=== PATIENT | female | born 1960 | race Caucasian/White ===

== ENCOUNTER 2017-11-27 13:46 | Observation (INO) | payer OTHER ==
[2017-11-27 14:43] LABS: #Basophils 0.1 thou/uL (0.0-0.2); #Eosinphils 0.2 thou/uL (0.0-0.7); #Lymphocytes 2.1 thou/uL (1.20-3.40); #Monocytes 0.8 thou/uL (0.11-0.59); #Neutrophils 6.7 thou/uL (1.40-6.50); %Basophils 0.9 % (0.0-1.0); %Eosinophils 1.7 % (0.0-10.0); %Lymphocytes 21.2 % (21.0-51.0); %Monocytes 7.9 % (0.0-10.0); %Neutrophils 68.3 % (42.0-75.0); Hemoglobin 12.6 g/dL (12.0-16.0); Mean Corpuscular HGB CONC 33.1 g/dL (32.0-36.0); Mean Corpuscular Hemoglobin 25.7 pg (27.0-31.0); Mean Corpuscular Volume 77.5 fl (81.0-99.0); Mean Platelet Volume 7.7 fL (7.4-10.4); Platelet Count 279 thou/uL (130-400); RBC Distribution Width 15.8 % (11.5-14.5); Red Blood Cell (RBC) Count 4.91 mill/uL (4.20-5.40); White Blood Cell (WBC) Count 9.8 thou/uL (4.8-10.8)
[2017-11-27 15:01] LABS: Bilirubin Negative (Negative); Blood, Urine Negative (Negative); Clarity CLEAR (Clear); Glucose, Urine (Dipstick) Negative (Negative); Leukocyte Negative (Negative); Nitrite Negative (Negative); Protein, Urine (Dipstick) Negative (Neg-Trace); Specific Gravity, Urine 1.005 (1.002-1.036); Urobilinogen 0.2 mg/dL (0.2-1.0)
[2017-11-27 15:03] LABS: Pregnancy Test - Urine (BHCG) Negative (Negative); Pregu Control Background? CLEAR/WHITE (CLR/WHITE); Pregu Control Bar Appear? YES (CONTROL BAR); Specific Gravity 1.005 (1.002-1.036)
[2017-11-27 15:05] LABS: ALT (SGPT) 10 U/L (8-55); AST (SGOT) 14 U/L (5-34); Albumin 4.3 g/dL (3.5-5.0); Alkaline Phosphatase 198 U/L (40-150); Anion Gap 13 mmol/L (10-20); BUN (Urea Nitrogen) 12 mg/dL (9.8-20.1); Bilirubin, Total 0.4 mg/dL (0.2-1.2); CK (CPK) 110 U/L (29-168); Calc. Creatinine Clearance 0 mL/min (70-130); Calcium 9.6 mg/dL (7.8-10.44); Carbon Dioxide 25 mmol/L (22-29); Chloride 103 mmol/L (98-107); Estimated GFR-MDRD 72; Globulin 2.3 g/dL (2.4-3.5); Glucose 128 mg/dL (70-105); Potassium 3.3 mmol/L (3.5-5.1); Protein, Total 6.6 g/dL (6.0-8.3); Sodium 138 mmol/L (136-145)
[2017-11-27 15:08] LABS: CKMB 3.2 ng/mL (0-6.6); Troponin I Less than 0.010 ng/mL (< 0.028)
--- NOTE | 2017-11-27 15:29 | RAD ---
PORTABLE CHEST 1 VIEW: Date: 11/27/17 Time: 1423 hours HISTORY: Chest pain. FINDINGS: Comparison made with exam of 08/10/11. The heart size is normal. The aorta is tortuous. The lungs are expanded without focal areas of consol idation, pneumothoraces, or pleural effusions. IMPRESSION: No acute process. POS: [facility]
[2017-11-27] MEDS ORDERED: Nitroglycerin 2% Ointment 1 INCH/1 GM Packet ONE (16:19)
[2017-11-27] MEDS ORDERED: Morphine 4 MG/ML VIAL ONE (16:49)
[2017-11-27] MEDS ORDERED: Ondansetron ODT 8 MG TAB ONE (17:42)
[2017-11-27 18:35] LABS: Troponin I Less than 0.010 ng/mL (< 0.028)
[2017-11-27] MEDS ORDERED: Acetaminophen 325 MG TAB PO PRN (18:37)
[2017-11-27] MEDS ORDERED: Ondansetron HCl/PF 4 MG/2 ML Vial IVP PRN (18:37)
[2017-11-27] MEDS ORDERED: Ondansetron ODT 4 MG TAB SL PRN (18:37)
[2017-11-27] MEDS ORDERED: Nitroglycerin 2% Ointment 1 INCH/1 GM Packet TOP SCH (18:45)
[2017-11-27] MEDS ORDERED: hydrALAZINE 20 MG/ML VIAL SLOW IVP PRN (18:50)
[2017-11-27] MEDS ORDERED: HumaLOG 300 UNITS/3 ML VIAL SC PRN ×2 (18:50)
[2017-11-27] MEDS ORDERED: Dextrose 50% Abboject 50 ML SYRINGE SLOW IVP PRN (18:50)
[2017-11-27] MEDS ORDERED: Bisacodyl 5 MG TAB PO PRN (18:50)
[2017-11-27] MEDS ORDERED: Dextrose 5% in Water 1,000 ML IV PRN (18:50)
[2017-11-27] MEDS ORDERED: Acetaminophen 650 MG Suppository PR PRN (18:50)
[2017-11-27] MEDS ORDERED: Aspirin 325 MG TAB PO SCH (19:15)
[2017-11-27 19:26] VITALS: BMI 36.1
[2017-11-27] MEDS ORDERED: metFORMIN 500 MG TAB PO SCH (20:15)
[2017-11-27 21:08] LABS: Troponin I Less than 0.010 ng/mL (< 0.028)
[2017-11-27] MEDS: Famotidine 20 MG TAB PO SCH (22:07)
[2017-11-27] MEDS: Atorvastatin Calcium 40 MG TAB PO SCH (22:07)
[2017-11-27] MEDS: Docusate 100 MG CAP PO SCH (22:08)
[2017-11-27] MEDS: Nitroglycerin 2% Ointment 1 INCH/1 GM Packet TOP SCH (22:10)
[2017-11-27] MEDS: Acetaminophen 325 MG TAB PO PRN (22:10)
[2017-11-27] MEDS ORDERED: Haloperidol 5 MG TAB PO SCH (22:15)
[2017-11-27] MEDS ORDERED: traZODone HCl 50 MG TAB PO SCH (22:15)
[2017-11-28] MEDS: traMADol HCl 50 MG TAB PO PRN ×3 (00:20→20:56)
[2017-11-28 05:17] LABS: #Basophils 0.1 thou/uL (0.0-0.2); #Eosinphils 0.2 thou/uL (0.0-0.7); #Lymphocytes 2.5 thou/uL (1.20-3.40); #Monocytes 0.6 thou/uL (0.11-0.59); #Neutrophils 3.9 thou/uL (1.40-6.50); %Basophils 0.8 % (0.0-1.0); %Eosinophils 2.8 % (0.0-10.0); %Lymphocytes 34.9 % (21.0-51.0); %Monocytes 8.5 % (0.0-10.0); %Neutrophils 52.9 % (42.0-75.0); Hemoglobin 10.6 g/dL (12.0-16.0); Mean Corpuscular HGB CONC 33.2 g/dL (32.0-36.0); Mean Corpuscular Hemoglobin 25.4 pg (27.0-31.0); Mean Corpuscular Volume 76.5 fl (81.0-99.0); Mean Platelet Volume 7.9 fL (7.4-10.4); Platelet Count 231 thou/uL (130-400); RBC Distribution Width 15.9 % (11.5-14.5); Red Blood Cell (RBC) Count 4.16 mill/uL (4.20-5.40); White Blood Cell (WBC) Count 7.3 thou/uL (4.8-10.8)
[2017-11-28] MEDS: Nitroglycerin 2% Ointment 1 INCH/1 GM Packet TOP SCH ×2 (05:18→14:06)
[2017-11-28 05:40] LABS: Anion Gap 11 mmol/L (10-20); BUN (Urea Nitrogen) 14 mg/dL (9.8-20.1); Calc. Creatinine Clearance 121 mL/min (70-130); Calcium 9.3 mg/dL (7.8-10.44); Carbon Dioxide 24 mmol/L (22-29); Cardiac Risk 5.4 (Less than 4.5); Chloride 106 mmol/L (98-107); Cholesterol 156 mg/dl (< 200 Desired); Estimated GFR-MDRD 76; Glucose 91 mg/dL (70-105); HDL Cholesterol 29 mg/dL (>60 Neg Risk); LDL Cholesterol, Calculated 82 mg/dL; Potassium 3.1 mmol/L (3.5-5.1); Sodium 138 mmol/L (136-145); Triglycerides 224 mg/dL (Less than 150)
--- NOTE | 2017-11-28 05:42 | HP ---
PRIMARY CARE PHYSICIAN: Saloni Herndon DO CHIEF COMPLAINT: Chest pain. HISTORY OF PRESENT ILLNESS: This is a 57-year-old obese white female with a history of insulin-depen dent diabetes mellitus type 2, hypertension, inactive lupus, and hyperlipidemia, who has been diagnos ed in the past for coronary artery disease. She did have an angioplasty done on 06/23/2017 in [facility]. Patient recently moved back to [place] to be near her family. She is a recovering alcoholic, that was about to attend an AA meeting when she had a sudden onset of left-sided chest pain. Pain wa s squeezing and sharp in nature, radiated down her left arm, similar to previous pain that she has collins d in the past. She took nitroglycerin sublingual x2 doses, 5-10 minutes apart with minimal improveme nt in her pain, so she called an ambulance, she was brought here. In the ER, the patient had a negat fatuma EKG and negative cardiac marker set. She had nitroglycerin placed through her chest wall without any significant improvement in her pain and then after morphine with some improvement in the p ain currently. The patient's pain was associated with some nausea and she had some chills and no oth er symptoms. PAST MEDICAL HISTORY: 1. Coronary artery disease, status post angioplasty in 06/2017. 2. Diabetes mellitus type x2 on low dose insulin and metformin. 3. Hypertension. 4. Hyperlipidemia. 5. Lupus, not on medication for years, currently inactive. PAST SURGICAL HISTORY: 1. Appendectomy. 2. Bilateral ankle surgery. 3. Left hip surgery. 4. Tonsillectomy. PAST PSYCHIATRIC HISTORY: History of alcoholism, and no alcohol for 6 years. Currently attends AA. SOCIAL HISTORY: The patient smokes half pack per day. She has not had alcohol for 6 years. She has had no marijuana for 7-8 years and does not currently use any illicit drugs. Lives near her aunt an d uncle in [place]. ALLERGIES: 1. CODEINE SULFATE. 2. COMPAZINE. 3. PENICILLIN. 4. TORADOL. CURRENT MEDICATIONS: The patient does not have an active medication list with her. She takes some s ort of long-acting insulin 5 units each morning, uncertain of the name. She also takes metformin 500 mg at night. She takes aspirin 81 mg daily and that she takes unknown blood pressure medications da nishi. REVIEW OF SYSTEMS: Constitutional: No fevers, chills as per HPI. Eyes: No double vision or blurre d vision. ENT: No congestion, drainage, or sore throat. Cardiovascular: See HPI. She felt her he art racing earlier. No skipping beats. Pulmonary: No coughing, wheezing, or shortness of breath. Gastrointestinal: No abdominal pain. She did have nausea, but no vomiting, no diarrhea or constipat ion. Genitourinary: No dysuria or hematuria. Musculoskeletal: No muscle aches or joint pains. Sk in: No rashes or lesions. Neurologic: No numbness, tingling, or focal weakness. Psychiatric: No significant stress or anxiety currently. PHYSICAL EXAMINATION: VITAL SIGNS: Blood pressure 170/89, pulse 74, respirations 18, O2 sat 96% on room air, temperature 9 8.8. GENERAL: This is a well-developed, obese white female, in no apparent distress. HEENT: Pupils equal, round, and react to light. Extraocular movements are intact. Oropharynx clear without lesions, erythema, or exudate. NECK: Supple. No lymphadenopathy, no thyroid nodules or enlargement, no JVD. HEART: Regular rate and rhythm. No murmurs, rubs, or gallops. LUNGS: Clear to auscultation bilaterally. No wheezes, crackles, or rhonchi. ABDOMEN: Soft, nontender to palpation, normoactive bowel sounds. No hepatosplenomegaly or other mas ses. EXTREMITIES: No clubbing, cyanosis, or edema. SKIN: No rashes or other lesions noted. NEUROLOGIC: She has intact strength in all extremities. Deep tendon reflexes 2+ in all extremities. She has no facial droop. PSYCHIATRIC: Patient is alert, oriented x3. She has a very flat affect. LABORATORY NAD DIAGNOSTIC DATA: CBC within normal limits. Complete metabolic panel notable for pota ssium of 3.3, glucose of 128, alkaline phosphatase of 198. Remainder was normal. Cardiac marker set negative x2. Brain natriuretic peptide normal. Magnesium is normal. Urinalysis is negative. Ches t x-ray: I did review the chest x-ray in the emergency room along with the radiologist's report, it shows some tortuosity to the aorta, but otherwise no acute cardiopulmonary process. EKG showed elías l sinus rhythm. No ST segment elevation, no T-wave inversions. No arrhythmias or other abnormalitie s. ASSESSMENT: 1. Chest pain with known coronary artery disease. Concern for acute coronary syndrome. Patient alysia garrett has a negative cardiac marker set and EKG. We will put in observation in telemetry and contin ue trending her troponins as well as observing on the director of physical security overnight. We will continue daily aspirin and we will consult Cardiology in the morning to see if she further workup such a s a stress test or cardiac catheterization. 2. Hypertension, uncontrolled and the patient is uncertain of her home blood pressure medications. We will put her on hydralazine as needed for severe hypertension, and try to obtain her home blood pr essure medication list. 3. Hypercholesterolemia. Patient is uncertain of her dose of statin. We will go ahead and put her on atorvastatin for now. 4. Diabetes mellitus type 2. We will put her on Lantus 5 units each morning along with a low insuli n-sliding scale before meals and at bedtime and resume her metformin at night. 5. Gastrointestinal prophylaxis. The patient is on Pepcid twice a day. 6. Deep venous thrombosis prophylaxis. The patient is on low-dose Lovenox and sequential compressio n devices while in bed. 7. Code status. I did discuss with the patient, she is a FULL CODE. Should she be incapacitated, h er aunt would be her medical decision maker, her aunt's name is Shalonda Rojas.
[2017-11-28] MEDS: Aspirin 325 MG TAB PO SCH (07:43)
[2017-11-28] MEDS: Famotidine 20 MG TAB PO SCH ×2 (07:44→20:55)
[2017-11-28] MEDS: Docusate 100 MG CAP PO SCH ×2 (07:44→20:54)
[2017-11-28] MEDS: Enoxaparin Sodium 40 MG/0.4 ML SYRINGE SC SCH (07:45)
[2017-11-28] MEDS: Insulin Glargine 5 UNITS in Pre-Filled Syringe 1 EACH SC SCH (12:04)
[2017-11-28] MEDS: Ondansetron ODT 4 MG TAB PO PRN (12:12)
[2017-11-28] MEDS: Acetaminophen 325 MG TAB PO PRN (12:12)
[2017-11-28] MEDS ORDERED: ADENOSINE 60 MG/20 ML VIAL ONE (13:25)
--- NOTE | 2017-11-28 13:25 | NM ---
NUCLEAR MEDICINE CARDIAC STRESS WITH EJECTION FRACTION AND WALL MOTION: Date: 11/28/17 HISTORY: Chest pain. COMPARISON: None. TECHNIQUE: The patient was administered 10 mCi of technetium-99m sestamibi for rest imaging and 29 mCi of techn etium-99m sestamibi for stress imaging. Cardiac gating is performed. FINDINGS: There is homogeneous distribution of the radiotracer in the left ventricle on the nonattenuation imag es. No reversibility or fixed defect. TID is 1.02. End-diastolic volume is 66 mL. End-systolic volume is 21 mL. CARDIAC GATING: There is appropriate motion and thickening. Ejection fraction is 68%. IMPRESSION: 1. No reversibility or fixed defect. 2. Ejection fraction is 68%. POS: [facility]
[2017-11-28] MEDS ORDERED: Morphine 4 MG/ML VIAL IV SCH (13:30)
[2017-11-28 16:11] LABS: Troponin I Less than 0.010 ng/mL (< 0.028)
[2017-11-28] MEDS: metFORMIN 500 MG TAB PO SCH (17:47)
[2017-11-28] MEDS: Ibuprofen 200 MG TAB PO PRN (17:50)
[2017-11-28] MEDS: Carvedilol 25 MG TAB PO SCH (20:55)
[2017-11-28] MEDS: Atorvastatin Calcium 40 MG TAB PO SCH (20:55)
[2017-11-28] MEDS: hydrALAZINE 25 MG TAB PO SCH (20:56)
[2017-11-28] MEDS: Metoclopramide HCl 10 MG/2 ML VIAL IVP SCH (21:06)
[2017-11-29] MEDS: Nitroglycerin 2% Ointment 1 INCH/1 GM Packet TOP SCH ×4 (03:20→20:27)
[2017-11-29] MEDS: Metoclopramide HCl 10 MG/2 ML VIAL IVP SCH ×3 (05:53→23:12)
[2017-11-29] MEDS: Carvedilol 25 MG TAB PO SCH ×2 (08:54→20:25)
[2017-11-29] MEDS: Aspirin 325 MG TAB PO SCH (08:54)
[2017-11-29] MEDS: hydrALAZINE 25 MG TAB PO SCH ×2 (08:55→20:25)
[2017-11-29] MEDS: Docusate 100 MG CAP PO SCH ×2 (08:55→20:25)
[2017-11-29] MEDS: Enoxaparin Sodium 40 MG/0.4 ML SYRINGE SC SCH (08:55)
[2017-11-29] MEDS: Famotidine 20 MG TAB PO SCH (08:55)
[2017-11-29] MEDS: Furosemide 80 MG TAB PO SCH (08:55)
[2017-11-29] MEDS: Insulin Glargine 5 UNITS in Pre-Filled Syringe 1 EACH SC SCH (08:56)
[2017-11-29] MEDS: traMADol HCl 50 MG TAB PO PRN (09:01)
[2017-11-29 09:24] LABS: Anion Gap 8 mmol/L (10-20); BUN (Urea Nitrogen) 13 mg/dL (9.8-20.1); Calc. Creatinine Clearance 124 mL/min (70-130); Calcium 9.3 mg/dL (7.8-10.44); Carbon Dioxide 28 mmol/L (22-29); Chloride 106 mmol/L (98-107); Estimated GFR-MDRD 78; Glucose 106 mg/dL (70-105); Potassium 3.7 mmol/L (3.5-5.1); Sodium 138 mmol/L (136-145)
[2017-11-29 11:14] LABS: ALT (SGPT) Less than 7 U/L (8-55); AST (SGOT) 10 U/L (5-34); Albumin 3.7 g/dL (3.5-5.0); Alkaline Phosphatase 174 U/L (40-150); Bilirubin, Direct 0.2 mg/dL (0.1-0.3); Bilirubin, Total 0.5 mg/dL (0.2-1.2); Protein, Total 5.7 g/dL (6.0-8.3)
[2017-11-29] MEDS: Ondansetron HCl/PF 4 MG/2 ML Vial IVP PRN ×2 (12:48→20:22)
--- NOTE | 2017-11-29 13:00 | ULT ---
RIGHT UPPER QUADRANT ULTRASOUND: History: Nausea, vomiting, abdominal pain. Technique: Multiple longitudinal and transverse images of the right upper quadrant of the abdomen is obtained using a multihertz curvilinear transducer. Real-time, color flow, and spectral waveform dopp ler analysis demonstrates the liver to be unremarkable. No evidence of hepatic parenchymal mass is se en. Common bile duct is of normal size measuring 4 mm. The gallbladder is unremarkable. No evidence o f gallstones seen. Visualized portion of the pancreas unremarkable. The right kidney is unremarkable. No evidence of ascites seen. Abdominal aorta and inferior vena cava are difficult to visualize due to overlying bowel gas. Normal hepatopedal flow is seen in the portal system. IMPRESSION: Normal right upper quadrant ultrasound. POS: [facility]
[2017-11-29] MEDS ORDERED: Lidocaine 1% PF 5 ML VIAL ONE (14:56)
[2017-11-29] MEDS ORDERED: PROPOFOL 200 MG/20 ML VIAL ONE (14:56)
[2017-11-29] MEDS ORDERED: Midazolam HCl 2 mg/2 ml Vial ONE (16:43)
[2017-11-29] MEDS ORDERED: Ondansetron HCl/PF 4 MG/2 ML Vial IVP PRN (17:07)
[2017-11-29] MEDS ORDERED: Promethazine HCl 25 MG/ML VIAL SLOW IVP PRN (17:07)
[2017-11-29] MEDS ORDERED: Meperidine HCl/PF 25 MG/ML VIAL SLOW IVP PRN (17:07)
[2017-11-29] MEDS ORDERED: Promethazine HCl 25 MG/ML VIAL IM PRN (17:07)
[2017-11-29] MEDS: metFORMIN 500 MG TAB PO SCH (18:40)
[2017-11-29] MEDS: Ibuprofen 200 MG TAB PO PRN (18:42)
[2017-11-29] MEDS: Atorvastatin Calcium 40 MG TAB PO SCH (20:25)
[2017-11-29] MEDS ORDERED: Famotidine/PF 20 mg/2ml Vial SLOW IVP SCH (21:00)
[2017-11-29] MEDS ORDERED: Famotidine 20 MG TAB PO SCH (21:00)
--- NOTE | 2017-11-29 22:37 | PDOC.PN ---
- Subjective Encounter Start Date: 11/28/17 Encounter Start Time: 11:30 Subjective: pt up in bed complains of chest pain and nausea - Objective Resuscitation Status: Resuscitation Status FULL:Full Resuscitation Vital Signs & Weight: Vital Signs (12 hours) Temp Pulse Resp BP BP Pulse Ox 11/29/17 20:12 98.4 F 58 L 18 114/70 95 11/29/17 20:00 98.4 F 58 L 18 11/29/17 15:25 98.3 F 69 20 120/65 94 L 11/29/17 12:57 98.4 F 68 18 115/67 95 11/29/17 12:19 98.4 F 68 18 115/67 95 11/29/17 11:57 98.4 F 68 18 115/67 95 11/29/17 11:42 98.5 F 70 18 151/75 H 97 Weight Weight 210 lb 4.8 oz I&O: 11/28/17 11/29/17 11/30/17 06:59 06:59 06:59 Intake Total 450 1200 605 Output Total 60 Balance 450 1200 545 Result Diagrams: 11/28/17 04:57 11/29/17 08:38 Additional Labs: Accuchecks 11/29/17 11/29/17 11/29/17 20:23 17:28 11:06 POC Glucose 84 81 115 H 11/29/17 05:57 POC Glucose 105 Phys Exam - Physical Examination HEENT: PERRLA, moist MMs, sclera anicteric, TM's clear, oral pharynx no lesions , 2+ tonsils Neck: no nodes, no JVD, supple, full ROM Respiratory: no wheezing, no rales, no rhonchi, wheezing present, clear to auscultation bilateral Cardiovascular: RRR, no significant murmur, no rub, gallop, irregular Gastrointestinal: soft, non-tender, no distention, positive bowel sounds Musculoskeletal: no edema, pulses present, edema present Neurological: non-focal, normal sensation, moves all 4 limbs Dx/Plan - Plan 1) chest pain 2) nausea/vomiting 3) htn plan: pt will undergo stress test. trops negative. will order ddimer. Unclear etiology of her nausea and vomiting. continue home meds for now. * . Review of Systems - Review of Systems Eyes: negative: Pain, Vision Change, Conjunctivae Inflammation, Eyelid Inflammation, Redness, Other ENT: negative: Ear Pain, Ear Discharge, Nose Pain, Nose Discharge, Nose Congestion, Mouth Pain, Mouth Swelling, Throat Pain, Throat Swelling, Other Respiratory: negative: Cough, Dry, Shortness of Breath, Hemoptysis, SOB with Excertion, Pleuritic Pain, Sputum, Wheezing Cardiovascular: chest pain Gastrointestinal: Nausea, Vomiting Genitourinary: negative: Dysuria, Frequency, Incontinence, Hematuria, Retention , Other Musculoskeletal: negative: Neck Pain, Shoulder Pain, Arm Pain, Back Pain, Hand Pain, Leg Pain, Foot Pain, Other - Medications/Allergies Allergies/Adverse Reactions: Allergies Allergy/AdvReac Type Severity Reaction Status Date / Time codeine Allergy Verified 11/27/17 19:47 ketorolac [From Toradol] Allergy Hives Verified 11/27/17 19:47 Penicillins Allergy Verified 11/27/17 19:47 prochlorperazine Allergy Verified 11/27/17 19:47 [From Compazine] Medications: Current Medications Acetaminophen (Tylenol) 650 mg SD Q4H PRN PRN Reason: Headache/Fever or Pain Aspirin (Aspirin) 325 mg PO QAM-[facility] Last Admin: 11/29/17 08:54 Dose: 325 mg Atorvastatin Calcium (Lipitor) 40 mg PO HS [facility] Last Admin: 11/29/17 20:25 Dose: 40 mg Bisacodyl (Dulcolax) 10 mg PO DAILYPRN PRN PRN Reason: Constipation Carvedilol (Coreg) 12.5 mg PO BID [facility] Last Admin: 11/29/17 20:25 Dose: 12.5 mg Dextrose/Water (Dextrose 50%) 25 gm SLOW IVP PRN PRN PRN Reason: Hypoglycemia Docusate Sodium (Colace) 100 mg PO BID [facility] Last Admin: 11/29/17 20:25 Dose: Not Given Enoxaparin Sodium (Lovenox) 40 mg SC 0900 [facility] Last Admin: 11/29/17 08:55 Dose: 40 mg Furosemide (Lasix) 80 mg PO DAILY [facility] Last Admin: 11/29/17 08:55 Dose: 80 mg Glucagon (Glucagon) 1 mg IM PRN PRN PRN Reason: Hypoglycemia Hydralazine HCl (Apresoline) 10 mg SLOW IVP Q4H PRN PRN Reason: SBP > 180, DBP > 100 Hydralazine HCl (Apresoline) 25 mg PO BID [facility] Last Admin: 11/29/17 20:25 Dose: Not Given Dextrose/Water (D5w) 1,000 mls @ 0 mls/hr IV .Q0M PRN; As Directed PRN Reason: Hypoglycemia Insulin Glargine 5 units/ (Miscellaneous Medication) 0.05 mls @ 0 mls/hr SC QAM [facility] Last Admin: 11/29/17 08:56 Dose: 0.05 mls Ibuprofen (Motrin) 200 mg PO Q4H PRN PRN Reason: Pain Last Admin: 11/29/17 18:42 Dose: 200 mg Insulin Human Lispro (Humalog) 0 units SC .MILD SLIDING SCALE PRN PRN Reason: Mild Correctional Scale Insulin Human Lispro (Humalog) 0 units SC .BEDTIME SLIDING SC PRN PRN Reason: Bedtime Correctional Scale Isosorbide Mononitrate (Imdur Er) 30 mg PO DAILY [facility] Last Admin: 11/29/17 08:56 Dose: 30 mg Metformin HCl (Glucophage) 500 mg PO QPM-WM [facility] Last Admin: 11/29/17 18:40 Dose: Not Given Metoclopramide HCl (Reglan) 10 mg IVP Q8HR [facility] Last Admin: 11/29/17 14:37 Dose: 10 mg Nitroglycerin (Nitro-Bid 2% Ointment) 0.5 inch TOP Q8HR [facility] Last Admin: 11/29/17 20:27 Dose: Not Given Ondansetron HCl (Zofran Odt) 4 mg PO Q6H PRN PRN Reason: Nausea/Vomiting Last Admin: 11/28/17 12:12 Dose: 4 mg Ondansetron HCl (Zofran) 4 mg IVP Q6H PRN PRN Reason: Nausea/Vomiting Last Admin: 11/29/17 20:22 Dose: 4 mg Pantoprazole Sodium (Protonix) 40 mg PO 2100 [facility] Last Admin: 11/29/17 20:25 Dose: 40 mg Tramadol HCl (Ultram) 50 mg PO Q6H PRN PRN Reason: Pain Last Admin: 11/29/17 09:01 Dose: 50 mg
--- NOTE | 2017-11-29 22:39 | PDOC.PN ---
- Subjective Encounter Start Date: 11/29/17 Encounter Start Time: 10:30 Subjective: pt up in bed still complains of some nausea - Objective Resuscitation Status: Resuscitation Status FULL:Full Resuscitation Vital Signs & Weight: Vital Signs (12 hours) Temp Pulse Resp BP BP Pulse Ox 11/29/17 20:12 98.4 F 58 L 18 114/70 95 11/29/17 20:00 98.4 F 58 L 18 11/29/17 15:25 98.3 F 69 20 120/65 94 L 11/29/17 12:57 98.4 F 68 18 115/67 95 11/29/17 12:19 98.4 F 68 18 115/67 95 11/29/17 11:57 98.4 F 68 18 115/67 95 11/29/17 11:42 98.5 F 70 18 151/75 H 97 Weight Weight 210 lb 4.8 oz I&O: 11/28/17 11/29/17 11/30/17 06:59 06:59 06:59 Intake Total 450 1200 605 Output Total 60 Balance 450 1200 545 Result Diagrams: 11/28/17 04:57 11/29/17 08:38 Additional Labs: Accuchecks 11/29/17 11/29/17 11/29/17 20:23 17:28 11:06 POC Glucose 84 81 115 H 11/29/17 05:57 POC Glucose 105 Phys Exam - Physical Examination HEENT: PERRLA, moist MMs, sclera anicteric, TM's clear, oral pharynx no lesions , 2+ tonsils Neck: no nodes, no JVD, supple, full ROM Respiratory: no wheezing, no rales, no rhonchi, wheezing present, clear to auscultation bilateral Cardiovascular: RRR, no significant murmur, no rub, gallop, irregular Gastrointestinal: soft, non-tender, no distention, positive bowel sounds Musculoskeletal: no edema, pulses present, edema present Dx/Plan - Plan 1) chest pain 2) nausea/vomiting 3) htn plan: pt had stress test which was negative. Ddimer was normal. pt states that she had nausea and vomiting x1 which was unwitnessed. will put pt on clear liquid diet. will get RUQ ultrasound, lipase level and get gi for evaluation. * . Review of Systems - Review of Systems ENT: negative: Ear Pain, Ear Discharge, Nose Pain, Nose Discharge, Nose Congestion, Mouth Pain, Mouth Swelling, Throat Pain, Throat Swelling, Other Cardiovascular: chest pain Gastrointestinal: Nausea, Vomiting Genitourinary: negative: Dysuria, Frequency, Incontinence, Hematuria, Retention , Other Musculoskeletal: negative: Neck Pain, Shoulder Pain, Arm Pain, Back Pain, Hand Pain, Leg Pain, Foot Pain, Other - Medications/Allergies Allergies/Adverse Reactions: Allergies Allergy/AdvReac Type Severity Reaction Status Date / Time codeine Allergy Verified 11/27/17 19:47 ketorolac [From Toradol] Allergy Hives Verified 11/27/17 19:47 Penicillins Allergy Verified 11/27/17 19:47 prochlorperazine Allergy Verified 11/27/17 19:47 [From Compazine] Medications: Current Medications Acetaminophen (Tylenol) 650 mg MD Q4H PRN PRN Reason: Headache/Fever or Pain Aspirin (Aspirin) 325 mg PO QAM-[facility] Last Admin: 11/29/17 08:54 Dose: 325 mg Atorvastatin Calcium (Lipitor) 40 mg PO HS [facility] Last Admin: 11/29/17 20:25 Dose: 40 mg Bisacodyl (Dulcolax) 10 mg PO DAILYPRN PRN PRN Reason: Constipation Carvedilol (Coreg) 12.5 mg PO BID [facility] Last Admin: 11/29/17 20:25 Dose: 12.5 mg Dextrose/Water (Dextrose 50%) 25 gm SLOW IVP PRN PRN PRN Reason: Hypoglycemia Docusate Sodium (Colace) 100 mg PO BID [facility] Last Admin: 11/29/17 20:25 Dose: Not Given Enoxaparin Sodium (Lovenox) 40 mg SC 0900 [facility] Last Admin: 11/29/17 08:55 Dose: 40 mg Furosemide (Lasix) 80 mg PO DAILY [facility] Last Admin: 11/29/17 08:55 Dose: 80 mg Glucagon (Glucagon) 1 mg IM PRN PRN PRN Reason: Hypoglycemia Hydralazine HCl (Apresoline) 10 mg SLOW IVP Q4H PRN PRN Reason: SBP > 180, DBP > 100 Hydralazine HCl (Apresoline) 25 mg PO BID [facility] Last Admin: 11/29/17 20:25 Dose: Not Given Dextrose/Water (D5w) 1,000 mls @ 0 mls/hr IV .Q0M PRN; As Directed PRN Reason: Hypoglycemia Insulin Glargine 5 units/ (Miscellaneous Medication) 0.05 mls @ 0 mls/hr SC QAM [facility] Last Admin: 11/29/17 08:56 Dose: 0.05 mls Ibuprofen (Motrin) 200 mg PO Q4H PRN PRN Reason: Pain Last Admin: 11/29/17 18:42 Dose: 200 mg Insulin Human Lispro (Humalog) 0 units SC .MILD SLIDING SCALE PRN PRN Reason: Mild Correctional Scale Insulin Human Lispro (Humalog) 0 units SC .BEDTIME SLIDING SC PRN PRN Reason: Bedtime Correctional Scale Isosorbide Mononitrate (Imdur Er) 30 mg PO DAILY [facility] Last Admin: 11/29/17 08:56 Dose: 30 mg Metformin HCl (Glucophage) 500 mg PO QPM-[facility] Last Admin: 11/29/17 18:40 Dose: Not Given Metoclopramide HCl (Reglan) 10 mg IVP Q8HR [facility] Last Admin: 11/29/17 14:37 Dose: 10 mg Nitroglycerin (Nitro-Bid 2% Ointment) 0.5 inch TOP Q8HR [facility] Last Admin: 11/29/17 20:27 Dose: Not Given Ondansetron HCl (Zofran Odt) 4 mg PO Q6H PRN PRN Reason: Nausea/Vomiting Last Admin: 11/28/17 12:12 Dose: 4 mg Ondansetron HCl (Zofran) 4 mg IVP Q6H PRN PRN Reason: Nausea/Vomiting Last Admin: 11/29/17 20:22 Dose: 4 mg Pantoprazole Sodium (Protonix) 40 mg PO 2100 [facility] Last Admin: 11/29/17 20:25 Dose: 40 mg Tramadol HCl (Ultram) 50 mg PO Q6H PRN PRN Reason: Pain Last Admin: 11/29/17 09:01 Dose: 50 mg
[2017-11-30 04:48] LABS: ALT (SGPT) 7 U/L (8-55); AST (SGOT) 9 U/L (5-34); Albumin 3.7 g/dL (3.5-5.0); Alkaline Phosphatase 170 U/L (40-150); Anion Gap 11 mmol/L (10-20); BUN (Urea Nitrogen) 10 mg/dL (9.8-20.1); Bilirubin, Total 0.6 mg/dL (0.2-1.2); Calc. Creatinine Clearance 120 mL/min (70-130); Calcium 9.4 mg/dL (7.8-10.44); Carbon Dioxide 30 mmol/L (22-29); Chloride 102 mmol/L (98-107); Estimated GFR-MDRD 74; Glucose 93 mg/dL (70-105); Lipase 23 U/L (8-78); Potassium 3.2 mmol/L (3.5-5.1); Protein, Total 5.7 g/dL (6.0-8.3); Sodium 140 mmol/L (136-145)
[2017-11-30 05:44] LABS: Band 1 % (5-11); Hemoglobin 10.3 g/dL (12.0-16.0); Hypochromia SLIGHT = 6-15 cells (100X) (0-5/hpf); Lymphocytes 32 % (21-51); MDiff Complete? YES; Mean Corpuscular HGB CONC 29.3 g/dL (32.0-36.0); Mean Corpuscular Hemoglobin 22.3 pg (27.0-31.0); Mean Corpuscular Volume 76.1 fl (81.0-99.0); Monocytes 8 % (0-10); Neutrophil 58 % (42-75); PLT Morphology Comment Appears Adequate; Platelet Count 226 thou/uL (130-400); RBC Distribution Width 15.6 % (11.5-14.5); Reactive Lymphocytes 1 % (0-10); Red Blood Cell (RBC) Count 4.62 mill/uL (4.20-5.40); White Blood Cell (WBC) Count 7.8 thou/uL (4.8-10.8)
[2017-11-30] MEDS: Metoclopramide HCl 10 MG/2 ML VIAL IVP SCH ×2 (06:22→13:50)
[2017-11-30] MEDS: Nitroglycerin 2% Ointment 1 INCH/1 GM Packet TOP SCH ×2 (06:25→13:49)
[2017-11-30 07:39] VITALS: BP 152/70
[2017-11-30] MEDS: Enoxaparin Sodium 40 MG/0.4 ML SYRINGE SC SCH (07:44)
[2017-11-30] MEDS: Carvedilol 25 MG TAB PO SCH (07:45)
[2017-11-30] MEDS: Docusate 100 MG CAP PO SCH (07:45)
[2017-11-30] MEDS: Aspirin 325 MG TAB PO SCH (07:45)
[2017-11-30] MEDS: hydrALAZINE 25 MG TAB PO SCH (07:45)
[2017-11-30] MEDS: Furosemide 80 MG TAB PO SCH (07:45)
[2017-11-30] MEDS: Insulin Glargine 5 UNITS in Pre-Filled Syringe 1 EACH SC SCH (07:46)
--- NOTE | 2017-11-30 07:53 | CON ---
DATE OF CONSULTATION: 11/29/2017 REFERRING PHYSICIAN: Dr. Mueller, [facility]. REASON FOR CONSULTATION: Nausea and vomiting. HISTORY OF PRESENT ILLNESS: Sigrid Dawson is a very pleasant 67-year-old female hospita lized yesterday with chest pain predominantly. The chest pain over the left side of chest going down to left hand. The patient has prior history of coronary disease and coronary angioplasty in 06/2017 in [place]. Cardiac enzymes and also the EKG are negative. She has abdominal sonogram which was negative for any pathology. The patient gives history of nausea and vomiting over the last couple of days. She says that every time she eats, she throws up. She has very minimal epigastric discomfort . Her chest pain is still present, but not as bad as before. The patient apparently planned to go t o meeting as she is a recovering alcoholic yesterday. That is when she starting having the chest pain and she came to the ER. She denies any anxiety, depression or any panic attack. She appears ve ry comfortable in no distress. Same day, she says she has had abdominal pain, chest pain, and also n ausea and vomiting. She is only on a clear liquid diet and every time she tried liquid diet, she thr ew up. This was not witnessed by anybody except the nurse tells me that they saw the blood and before in the commode. She has no relevant history. ALLERGIES: 1. CODEINE. 2. COMPAZINE. 3. PENICILLIN. 4. TORADOL. SOCIAL HISTORY: The patient is a regular alcoholic and quit drinking alcohol 6 years ago. She has b een going to for the last 3 months. She does smoke. She does not use any recreational drugs. MEDICAL ILLNESSES: 1. Obesity. 2. Coronary artery disease status post angioplasty in 06/2017. 3. Diabetes mellitus. 4. Hypertension. 5. Hyperlipidemia. 6. History of lupus, inactive, not taking medicines. SURGERIES: 1. Appendectomy. 2. Bilateral ankle surgery. 3. Left hip surgery. 4. Tonsillectomy. MEDICATIONS: Reviewed which include insulin, metformin, aspirin, and unknown blood pressure medicati on. REVIEW OF SYSTEMS: Constitutional: No fever, no weight loss. No fatigue or tiredness. No dizzines s. Respiratory System: No history of chronic cough, hemoptysis, dyspnea. Cardiovascular System: C hest pain which is not a noncardiac, no palpitation, no dyspnea, orthopnea, PND. Gastrointestinal: She had abdominal pain, nausea, and vomiting, no hematemesis, no melena. Genitourinary: No dysuria, frequency of urination, hematuria. Musculoskeletal: No back pain or myalgias. Neuroendocrine/Psyc hiatric: Denies any depression or anxiety. PHYSICAL EXAMINATION: GENERAL: Appears very comfortable in no acute distress. She is awake, alert, oriented to time, plac e and person. VITAL SIGNS: Temperature 98.4 degrees Fahrenheit, pulse is 68, blood pressure is 115/67. HEENT: Conjunctivae clear. NECK: Supple. No adenitis or thyromegaly noted. CARDIOVASCULAR SYSTEM: First and second heart sounds normal. LUNGS: Clear to auscultation. ABDOMEN: Abdomen is soft. Abdomen is actually nondistended. Abdomen is actually nontender but does not show any expression on deep palpation. However, she says she is having pain over the epigastric area. There is no organomegaly or masses. Bowel sounds normal. EXTREMITIES: Reveal no edema. CENTRAL NERVOUS SYSTEM: Grossly within normal limits. LABORATORY DATA: Does show mild anemia. Hemoglobin on admission 12.6 dropping down to 10.6 today, h ematocrit 38, today 31.8, MCV 77.5, platelet count 231,000, polymorphs 52, lymphocytes 34. Serum michelle mistries: Sodium is 138, potassium 3.7, chloride 106, bicarbonate 28, BUN is 13, creatinine 0.77, gl ucose is 106, bilirubin 0.5, AST 0.2, ALT 10, alkaline phosphatase is 174, albumin 3.7. Nuclear stre ss testing is normal. An abdominal sonogram done shows no pathology. CLINICAL IMPRESSION: A 57-year-old hospitalized with chest pain and cardiac workup is nega tive. Abdominal sonogram shows negative for pathology. She also history of nausea and vomiting. Ab dominal exam is very benign. She does not show expression to deep palpation. However, she says she is sore over the epigastric area. Overall impression, the etiology is unclear at the present time. She came in with chest pain, now sh e is having nausea and vomiting and her bilirubin is very benign. I did speak to Ms. Dawson about the EGD. She is agreeable. If she had a clear liquid diet this afternoon, I believe I can go over t he EGD later on today. I will make further recommendations after EGD.
[2017-11-30] MEDS: Ondansetron ODT 4 MG TAB PO PRN (08:09)
--- NOTE | 2017-11-30 08:31 | OP ---
DATE OF SURGERY: 11/29/2017 OPERATIVE PROCEDURE: Esophagogastroduodenoscopy with biopsy. PREOPERATIVE DIAGNOSES: A 57-year-old female admitted to the hospital with chest pain and the cardiac workup was negative. She complains of nausea and vomiting. She also has mild epigastric abdominal pain. POSTOPERATIVE DIAGNOSES: Mucosal coating of the esophagus and some food material, otherwise the esop hageal mucosa appeared normal. The GE junction, no pathology seen. The fundus, cardia, and gastric body, no pathology seen. The gastric antrum shows markedly edematous mucosa, indicative of gastritis . The duodenal bulb again showed mild duodenitis. PROCEDURE NOTE: The patient was placed on her left lateral position and was given sedation by Anesth esia Department. A Pentax video gastroscope under direct vision was passed down the oropharynx and G E junction, into the stomach and subsequently descending duodenum. The esophageal mucosa appears nor mal. She does have some mucosal coating with some food material. No esophagitis seen. The GE juncti on, no pathology seen. The fundus and cardia, no pathology seen. The gastric body, no lesions seen. The gastric antral mucosa was markedly edematous and hyperemic. No ulcerations seen. Biopsy obtai dianna. The duodenal bulb again showed mild duodenitis. The descending duodenum, no pathology seen. OVERALL IMPRESSION: The findings are very minimal and unable to explain the patient's nausea and vom iting. RECOMMENDATIONS: 1. Protonix 40 once a day. 2. Diet: As tolerated. We will start clear liquid diet and advance diet as tolerated.
[2017-11-30 08:41] VITALS: TEMP 97.8
[2017-11-30] MEDS: traMADol HCl 50 MG TAB PO PRN (11:34)
[2017-11-30] MEDS: Ondansetron HCl/PF 4 MG/2 ML Vial IVP PRN (12:54)
--- NOTE | 2017-12-01 03:14 | DIS ---
DATE OF ADMISSION: 11/27/2017 DATE OF DISCHARGE: 11/30/2017 DISCHARGE DIAGNOSES: 1. Chest pain. 2. Nausea, vomiting. 3. Hypertension. HOSPITAL COURSE: Patient is a very pleasant 57-year-old female with underlying psychiatric issues wh o presented to the hospital with complaints of chest pain, nausea, and vomiting. Patient underwent a stress test which was negative and an EF of 58%. The patient also had troponins drawn which were ne gative x3. Patient had a D-dimer which was 0.43. Patient also was found to have a lipase of 23. Ho wever, she continued to have significant amount of nausea and chest pain. [facility] and [facility]. The patient also had a right upper quadrant ultrasound, w hich did not indicate any acute abnormalities, indicated a normal right upper quadrant ultrasound. S he underwent an EGD, which indicated minimal gastritis, mild duodenitis. At this time, the patient's ibuprofen was discontinued. She was asked not to take anymore ibuprofen and she was put on Protonix 40 mg once a day by GI. The patient was given a soft diet. She tolerated it. She had a little bit of nausea; however, no vomiting. Patient was discharged home. She will follow up with PCP and GI f or her gastric biopsy results from her EGD. PHYSICAL EXAMINATION: VITAL SIGNS: Temperature of 98.2, pulse 66, respirations 16, 94% room air, blood pressure 111/75. GENERAL: She is awake, alert, oriented x3, does not appear in distress. CARDIOVASCULAR: S1, S2 present. No murmurs, rubs, or gallops. Chest wall: No pain upon palpation. ABDOMEN: Obese. Bowel sounds are present x2. No hepatomegaly, splenomegaly noted. LUNGS: Clear to auscultation. EXTREMITIES: No edema. DISCHARGE INSTRUCTIONS: The patient will be discharged home to follow up with PCP and GI as outpatie nt.
== END 2017-11-30 16:49 | disposition home or self-care (01) ==
LOC: ERS 13:46 → 2SW 17:28 → T4-B 11-29 12:08
PROVIDERS: ADMIT Emergency Medicine; ATTEND Emergency Medicine
PROC: 0DB68ZX Excision of Stomach, Via Natural or Artificial Opening Endoscopic, Diagnostic (ICD-10-PCS; principal; 2017-11-30)
DX: K31.9 Disease of stomach and duodenum, unspecified (principal); K29.80 Duodenitis without bleeding; I10 Essential (primary) hypertension; I25.10 Atherosclerotic heart disease of native coronary artery without angina pectoris; F10.11 Alcohol abuse, in remission; F17.210 Nicotine dependence, cigarettes, uncomplicated; E11.9 Type 2 diabetes mellitus without complications; E78.5 Hyperlipidemia, unspecified; M32.9 Systemic lupus erythematosus, unspecified; E66.9 Obesity, unspecified; Z68.36 Body mass index [BMI] 36.0-36.9, adult; Z79.82 Long term (current) use of aspirin; Z79.4 Long term (current) use of insulin; Z79.899 Other long term (current) drug therapy; Z88.0 Allergy status to penicillin; Z88.5 Allergy status to narcotic agent; Z88.8 Allergy status to other drugs, medicaments and biological substances
CPT/HCPCS: 36415; 36416; 71045; 76705; 78452; 80048; 80053; 80061; 80076; 81003; 81025; 82550; 82553; 83690; 83735; 83880; 84484; 85007; 85025; 85027; 85379; 88305; 88312; 93005; 93017; 94760; 96372; 96374; 96375; 96376; A9500; G0378; J0153; J1650; J2001; J2250; J2270; J2405; J2704; J2765; Q0162

== ENCOUNTER 2019-05-09 07:16 | Outpatient (CLI) | payer OTHER ==
[2019-05-09 14:29] LABS: #Eosinphils 0.2 thou/uL (0.0-0.7); #Lymphocytes 3.3 thou/uL (1.20-3.40); #Monocytes 0.8 thou/uL (0.11-0.59); #Neutrophils 5.5 thou/uL (1.40-6.50); %Basophils 0.4 % (0.0-1.0); %Eosinophils 2.4 % (0.0-10.0); %Lymphocytes 33.7 % (21.0-51.0); %Monocytes 7.9 % (0.0-10.0); %Neutrophils 55.6 % (42.0-75.0); Hemoglobin 13.6 g/dL (12.0-16.0); Mean Corpuscular HGB CONC 32.4 g/dL (32.0-36.0); Mean Corpuscular Hemoglobin 28.3 pg (27.0-31.0); Mean Corpuscular Volume 87.5 fL (78.0-98.0); Platelet Count 269 thou/uL (130-400); RBC Distribution Width 14.4 % (11.5-14.5); White Blood Cell (WBC) Count 9.9 thou/uL (4.8-10.8)
[2019-05-09 14:31] LABS: INR-International Normal Ratio 0.8; Prothrombin Time 11.4 SEC (12.0-14.7)
[2019-05-09 14:32] LABS: Bacteria/HPF None Seen HPF (None Seen); Bilirubin Negative (Negative); Blood, Urine 2+ (Negative); Clarity Clear (Clear); Glucose, Urine (Dipstick) Normal (Negative); Leukocyte Negative Leu/uL (Negative); Nitrite Negative (Negative); Protein, Urine (Dipstick) Negative (Neg-Trace); RBC/HPF 0-3 HPF (0-3); Squamous Epithelial 0-3 HPF (0-3); Urobilinogen Normal mg/dL (Less than 2); WBC/HPF 0-3 HPF (0-3)
[2019-05-09 14:53] LABS: Anion Gap 15 mmol/L (10-20); BUN (Urea Nitrogen) 15 mg/dL (9.8-20.1); Calc. Creatinine Clearance 0 mL/min (70-130); Calcium 9.2 mg/dL (7.8-10.44); Carbon Dioxide 24 mmol/L (22-29); Chloride 99 mmol/L (98-107); Estimated GFR-MDRD 62; Glucose 82 mg/dL (70-105); Potassium 3.6 mmol/L (3.5-5.1); Sodium 134 mmol/L (136-145)
== END 2019-05-09 07:17 | disposition home or self-care (01) ==
LOC: LABBT 07:16
PROVIDERS: ATTEND Orthopaedic Surgery
DX: Z01.818 Encounter for other preprocedural examination (principal); M17.0 Bilateral primary osteoarthritis of knee
CPT/HCPCS: 80048; 81001; 85025; 85610; 93005; 93010

== ENCOUNTER 2019-05-09 14:00 | Inpatient (IN) | payer OTHER ==
[2019-05-20] MEDS ORDERED: Tranexamic Acid 1,000 MG/10 ML VIAL ONE (07:17)
[2019-05-20] MEDS ORDERED: Sodium Chloride 0.9% 100 ML ONE (07:17)
[2019-05-20] MEDS ORDERED: Clindamycin/D5W 600 mg/50 ml Premix Bag ONE (07:17)
[2019-05-20] MEDS ORDERED: Fentanyl 100 MCG/2 ML VIAL ONE ×5 (08:08→12:58)
[2019-05-20] MEDS ORDERED: Midazolam HCl 2 mg/2 ml Vial ONE ×2 (08:08→09:38)
[2019-05-20] MEDS ORDERED: Ropivacaine HCl/PF 250 ML in Premix Bag 1 BAG NERVE BLCK SCH (08:53)
[2019-05-20] MEDS ORDERED: Zolpidem Tartrate 5 MG TAB PO PRN ×2 (08:53→09:45)
[2019-05-20] MEDS ORDERED: Ondansetron PF 4 MG/2 ML Vial IVP PRN (08:53)
[2019-05-20] MEDS ORDERED: traMADol HCl 50 MG TAB PO PRN (08:53)
[2019-05-20] MEDS ORDERED: Promethazine HCl 25 MG/ML VIAL IM PRN (08:53)
[2019-05-20] MEDS ORDERED: Fentanyl 100 MCG/2 ML VIAL SLOW IVP PRN (08:54)
[2019-05-20] MEDS ORDERED: methylPREDNISolone Acetate 40 mg/ml Vial ONE (09:14)
[2019-05-20] MEDS ORDERED: Lidocaine 1% (PF) 30 ML VIAL ONE (09:14)
[2019-05-20] MEDS ORDERED: Bupivacaine PF 0.5% 30 ML VIAL ONE (09:14)
[2019-05-20] MEDS ORDERED: Acetaminophen 325 MG TAB PO PRN (09:45)
[2019-05-20] MEDS ORDERED: diphenhydrAMINE 25 MG CAP PO PRN (09:45)
[2019-05-20] MEDS ORDERED: Tranexamic Acid 1,000 MG in Sodium Chloride 0.9% 100 ML IVPB SCH (09:45)
[2019-05-20] MEDS ORDERED: Diazepam 5 MG TAB PO PRN (09:49)
[2019-05-20] MEDS: Sodium Chloride 0.9% 1,000 ML IV SCH ×2 (13:53→19:33)
[2019-05-20] MEDS: traMADol HCl 50 MG TAB PO PRN ×2 (14:31→21:22)
[2019-05-20] MEDS: Clindamycin/D5W 900 MG in Premix Bag 1 BAG IVPB SCH ×2 (14:32→18:18)
[2019-05-20] MEDS: Cyclobenzaprine 10 MG TAB PO SCH ×2 (14:32→21:20)
[2019-05-20] MEDS ORDERED: hydrOXYzine 25 MG TAB PO PRN (14:45)
--- NOTE | 2019-05-20 14:49 | PDOC.HOSPP ---
- Subjective Encounter Date: 05/20/19 Encounter Time: 12:00 Subjective: awake, no sob or palp is working with PT post op her lower extre is still numb - Objective Vital Signs & Weight: Weight Weight 174 lb Hospitalist ROS - Medication Medications: Active Medications Generic Name Dose Route Start Last Admin Trade Name Freq PRN Reason Stop Dose Admin Cyclobenzaprine HCl 10 mg 05/20/19 15:00 05/20/19 14:32 Flexeril PO 10 mg TID CANELO Administration Clindamycin Phosphate/Dextrose 50 mls @ 100 mls/hr 05/20/19 13:00 05/20/19 14 :32 900 mg/ Device IVPB 05/20/19 19:29 50 mls 0100,0700,1300,1900 CANELO Administration Sodium Chloride 1,000 mls @ 100 mls/hr 05/20/19 09:45 05/20/19 13:53 Normal Saline 0.9% IV Not Given .Q10H CANELO Tramadol HCl 100 mg 05/20/19 08:53 05/20/19 14:31 Ultram PO 100 mg Q6H PRN Administration Moderate Pain 4-6 - Exam General Appearance: NAD, awake alert Eye: PERRL, anicteric sclera ENT: no oropharyngeal lesions, dry oral mucosa Neck: supple, no JVD Heart: RRR, no murmur Respiratory: no wheezes, no rales Gastrointestinal: soft, non-tender, non-distended, normal bowel sounds Extremities: no edema Extremities - other findings: right knee in dressing Neurological: cranial nerve grossly intact, no focal deficits Psychiatric: normal affect, A&O x 3 Hosp A/P (1) Status post total knee replacement, right Code(s): Z96.651 - PRESENCE OF RIGHT ARTIFICIAL KNEE JOINT Status: Acute (2) Schizoaffective disorder Code(s): F25.9 - SCHIZOAFFECTIVE DISORDER, UNSPECIFIED Status: Chronic Qualifiers: Schizoaffective disorder type: unspecified Qualified Code(s): F25.9 - Schizoaffective disorder, unspecified (3) Bipolar disorder Code(s): F31.9 - BIPOLAR DISORDER, UNSPECIFIED Status: Chronic Qualifiers: Active/Remission status: in full remission (4) DM type 2 (diabetes mellitus, type 2) Status: Chronic Qualifiers: Diabetes mellitus correction insulin use: without superintendent terminal use (5) Dyslipidemia Code(s): E78.5 - HYPERLIPIDEMIA, UNSPECIFIED Status: Chronic (6) Tobacco abuse Code(s): Z72.0 - TOBACCO USE Status: Chronic (7) CAD (coronary artery disease) Code(s): I25.10 - ATHSCL HEART DISEASE OF [place] CORONARY ARTERY W/O ANG PCTRS Status: Chronic Qualifiers: Coronary Disease-Associated Artery/Lesion type: [place] artery [place] vs. transplanted heart: [place] heart Plan: prior angioplasty, no stents (8) Hypothyroidism Code(s): E03.9 - HYPOTHYROIDISM, UNSPECIFIED Status: Chronic Qualifiers: Hypothyroidism type: unspecified Qualified Code(s): E03.9 - Hypothyroidism , unspecified - Plan continue asp bid, lipitor, metformin, trazadone, isosorbide dinitrate, synthroid , lamictal, prozac and valium bid please confirm from her pharmacy the dose of haldol if she is still on it. pcp is Dr.Garth Farmer, Psychiatrist is with [facility] on flexeril tid, fentanyl, norco prn will f/u watch for resp depression i.spirometry
[2019-05-20] MEDS ORDERED: PHENYLEPHRINE-NS 100 MCG/ML 10 ML SYRINGE ONE (14:54)
[2019-05-20] MEDS ORDERED: Ropivacaine 0.5% HCl/PF (150 MG/30 ML VIAL) ONE (14:54)
[2019-05-20] MEDS ORDERED: ePHEDrine/0.9% NaCl/PF SYRINGE 50 mg/10 ml ONE (14:54)
[2019-05-20] MEDS ORDERED: Ropivacaine 0.2% HCl/PF (40 MG/20 ML VIAL) ONE (14:54)
[2019-05-20] MEDS ORDERED: Lidocaine 1% PF 5 ML VIAL ONE (14:54)
[2019-05-20] MEDS ORDERED: PROPOFOL 200 MG/20 ML VIAL ONE (14:54)
[2019-05-20] MEDS ORDERED: hydrOXYzine 25 MG TAB PO SCH (15:00)
--- NOTE | 2019-05-20 16:20 | OP ---
DATE OF PROCEDURE: 05/20/2019 PREOPERATIVE DIAGNOSIS: Bilateral knee arthritis, right worse than left. POSTOPERATIVE DIAGNOSIS: Bilateral knee arthritis, right worse than left. PROCEDURES PERFORMED: Right total knee replacement using [place] pinless navigation and left knee corticosteroid injection. INTERNATIONAL ACCOUNT REPRESENTATIVE: Harsha Govea PA-C ESTIMATED BLOOD LOSS: Minimal. COMPLICATIONS: None. ANESTHESIA: She had a general anesthetic. She had a preoperative block. IMPLANTS: To the right knee includes Triathlon total knee system. The femur was a size 3 cruciate-retaining femur. We used a size 3 primary tibial baseplate. We used a 3 x 11 mm CS X3 tibial bearing and an asymmetric X3 32 x 10 patella. DISPOSITION: She went to recovery room in stable condition. INDICATIONS: This is a 59-year-old female, who has some extreme psychiatric illness, which is really delayed her getting cleared to get her knee replaced and at this time is presenting for a right knee replacement and a left knee injection. DESCRIPTION OF PROCEDURE: After all appropriate consent forms were explained and signed, she was taken back to the operating room and at this time was given general anesthetic. Once the level of anesthesia was appropriate, the left knee was cleaned off with alcohol and a mixture of plain lidocaine and 80 mg of Depo-Medrol was injected into the left knee without complication. Band-Aid was applied. After all appropriate consent forms were explained and signed, the patient was taken back to the operating room and at this time was given general anesthetic. Once the level of anesthesia was appropriate, a well-padded tourniquet was placed on the right leg , and the leg was then prepped and draped in standard surgical fashion. The limb was exsanguinated and tourniquet taken up to 300 mmHg. Midline incision was made with a 10 blade down through the skin and subcutaneous tissue. Bovie electrocautery was used to coagulate any brisk venous bleeding. A new blade was used to make a medial parapatellar arthrotomy. Small subperiosteal release was performed medially and excess fat pad was removed. The knee was flexed up to gain access to the femur. The femur was navigated and distal femoral resection was made. Epicondylar access was used to align our sizing jig and this was pinned in place. We sized our femur to be a size 3 cruciate-retaining femur. 4:1 cutting block was applied and pinned. Anterior and posterior chamfer cuts were then made. We navigated out our proximal tibia and made our proximal tibial resection. Spreaders were used to remove any posterior osteophytes off the back of the femur as well as remaining meniscal tissue. A long alignment delfina was then used to achieve correct rotation of our tibial baseplate and we used a size 3 primary tibial baseplate was chosen. This was pinned in place. We trialed the polyethylene and we used a 3 x 11 mm CS X3 tibial bearing polyethylene gave us full extension and good stability throughout range of motion. Two towel clips and a saw were used to cut our patella. Three lug nuts were drilled and an asymmetric X3 32 x 10 patella was trialed which sat nicely in the trochlear groove. We then drilled our femur and punched our tibia. All components were removed. The knee was thoroughly irrigated and dried. Cement was mixed into the cement gun on the back table. Components were then placed. The knee was held out in full extension until the cement had dried. All excess bone cement was removed. Multiple #2 Vicryl stitches as well as a Quill were used to close our extensor mechanism. 0 Quill followed by a running Monoderm was then used to close the skin. Surgicel glue was then used on the skin. Once this had dried, soft tissue dressing was applied to the limb, tourniquet was let down, and the toes pinked up nicely. The patient was then awakened and taken to the recovery room in stable condition. All counts were correct at the end of the case. The patient did receive preoperative IV antibiotics. The patient was injected with Marcaine for postoperative pain relief. Job ID: [id number] [facility]
[2019-05-20] MEDS: HYDROcodone/Acetaminophen 10/325 mg Tablet PO PRN ×2 (17:07→22:47)
[2019-05-20] MEDS: metFORMIN 500 MG TAB PO SCH (17:08)
[2019-05-20] MEDS ORDERED: Vancomycin HCl 1 GM in Premix Bag 1 BAG IVPB SCH (19:00)
[2019-05-20] MEDS ORDERED: Haloperidol 5 MG TAB PO SCH (21:00)
[2019-05-20] MEDS: Atorvastatin Calcium 20 MG TAB PO SCH (21:20)
[2019-05-20] MEDS: Aspirin 81 mg Enteric Coated Tablet PO SCH (21:20)
[2019-05-20] MEDS: Ferrous Gluconate 324 MG TAB PO SCH (21:21)
[2019-05-20] MEDS: traZODone HCl 50 MG TAB PO SCH (21:21)
[2019-05-20] MEDS: Senokot S 8.6-50 MG TAB PO SCH (21:21)
[2019-05-21] MEDS: HYDROcodone/Acetaminophen 10/325 mg Tablet PO PRN ×3 (02:54→22:15)
[2019-05-21] MEDS: traMADol HCl 50 MG TAB PO PRN (04:43)
[2019-05-21 05:03] LABS: Hemoglobin 10.6 g/dL (12.0-16.0); Mean Corpuscular HGB CONC 33.2 g/dL (32.0-36.0); Mean Corpuscular Hemoglobin 28.5 pg (27.0-31.0); Mean Corpuscular Volume 85.9 fL (78.0-98.0); Mean Platelet Volume 6.1 fL (7.4-10.4); Platelet Count 272 thou/uL (130-400); RBC Distribution Width 13.7 % (11.5-14.5); Red Blood Cell (RBC) Count 3.72 mill/uL (4.20-5.40); White Blood Cell (WBC) Count 13.7 thou/uL (4.8-10.8)
[2019-05-21] MEDS: Levothyroxine Sodium 25 MCG TAB PO SCH (06:12)
[2019-05-21] MEDS: Sodium Chloride 0.9% 1,000 ML IV SCH ×3 (07:10→17:30)
[2019-05-21] MEDS ORDERED: Naloxone HCl 0.4 mg/ml Vial ONE (08:00)
[2019-05-21 08:12] LABS: Actual Bicarbonate (HCO3a) 22.4 mEq/L (22-28); Base Excess (BEa) -1.5 mEq/L (-2.0 to +3.0); CO2 Tension 34.5 mmHg (35.0-45.0); Calcium, Ionized 1.19 mmol/L (1.12-1.30); Carboxyhemoglobin (COHb) 2.1 gm% (0.0-3.0); Hemoglobin (Hb) 10.9 g/dL (12.0-16.0); O2 Tension (PaO2) 81.2 mmHg (80.0-100.0); pH, Arterial 7.43 (7.35-7.45)
[2019-05-21] MEDS ORDERED: Sodium Chloride 0.9% 1,000 ML IV SCH ×2 (08:15→08:28)
[2019-05-21 08:17] LABS: Puncture Site RRA
[2019-05-21 08:18] LABS: ALV-art Gradient 75.315 (0-20)
[2019-05-21] MEDS ORDERED: Dextrose 5% in Water 1,000 ML IV PRN (08:20)
[2019-05-21] MEDS ORDERED: Insulin Regular 300 UNITS/3 ML VIAL SC PRN ×2 (08:20)
[2019-05-21] MEDS ORDERED: Dextrose 50% Abboject 50 ML SYRINGE SLOW IVP PRN (08:20)
[2019-05-21] MEDS ORDERED: Naloxone HCl 0.4 mg/ml Vial IV PRN (08:25)
--- NOTE | 2019-05-21 08:55 | PRG ---
DATE OF SERVICE: 05/21/2019 SUBJECTIVE: I was called to bedside by nursing staff for patient's unresponsiveness. Upon entering room and examining the patient, noticed that she was clinically minimally responsive to painful stimuli, but she had a nice airway and her vital signs, which were just taken had appeared stable. OBJECTIVE: VITAL SIGNS: [place] 0732 hours is 98.3, pulse 82, respiratory rate is 14, O2 saturation is 97% on room air, and blood pressure is 108/75. She only responds to deep painful stimulus, but does not follow commands at all; therefore, a consultation with nursing staff, daisy hickey was called. All members responded. I elected to give the patient some Narcan due to recent medication history of [place] at about 7 o'clock. She did have a transient response to this and was able to respond to verbal stimulus within [address] Owen Mann was called to bedside. I provided clinical presentation of the patient's history, surgical status and other pertinent parameters. He will be transferring the patient to the intensive care unit for close followup and treatment. Job ID: [id number]
[2019-05-21 08:58] LABS: ALT (SGPT) 7 U/L (8-55); AST (SGOT) 11 U/L (5-34); Albumin 3.6 g/dL (3.5-5.0); Alkaline Phosphatase 153 U/L (40-110); Anion Gap 16 mmol/L (10-20); BUN (Urea Nitrogen) 8 mg/dL (9.8-20.1); Bilirubin, Total 0.4 mg/dL (0.2-1.2); Calc. Creatinine Clearance 97 mL/min (70-130); Calcium 9.4 mg/dL (7.8-10.44); Carbon Dioxide 23 mmol/L (22-29); Chloride 100 mmol/L (98-107); Estimated GFR-MDRD 74; Globulin 1.7 g/dL (2.4-3.5); Glucose 147 mg/dL (70-105); Magnesium 1.7 mg/dL (1.6-2.6); Potassium 4.2 mmol/L (3.5-5.1); Protein, Total 5.3 g/dL (6.0-8.3); Sodium 135 mmol/L (136-145)
[2019-05-21] MEDS ORDERED: Levothyroxine Sodium 25 MCG TAB PO SCH (09:00)
[2019-05-21] MEDS ORDERED: Ferrous Sulfate 325 MG TAB PO SCH (09:00)
[2019-05-21] MEDS ORDERED: Haloperidol 1 MG TAB PO SCH (09:00)
[2019-05-21] MEDS ORDERED: FLUoxetine HCl 10 MG CAP PO SCH (09:00)
[2019-05-21] MEDS: Cyclobenzaprine 10 MG TAB PO SCH ×3 (09:14→20:20)
[2019-05-21] MEDS: CeleCOXIB 100 MG CAP PO SCH (09:14)
[2019-05-21] MEDS: Multivitamin W/ Minerals 1 TAB PO SCH (09:15)
[2019-05-21] MEDS: lamoTRIgine 100 MG TAB PO SCH (09:15)
[2019-05-21] MEDS: Ferrous Gluconate 324 MG TAB PO SCH ×2 (09:15→20:19)
[2019-05-21] MEDS: Isosorbide Dinitrate 20 MG TAB PO SCH (09:15)
[2019-05-21] MEDS: Senokot S 8.6-50 MG TAB PO SCH ×2 (09:15→20:19)
[2019-05-21 09:22] LABS: Thyroid Stimulating Hormone 0.2261 uIU/mL (0.35-4.94)
--- NOTE | 2019-05-21 09:29 | CON ---
DATE OF CONSULTATION: HISTORY OF PRESENT ILLNESS: Sigrid Dawson is a 59-year-old female, who underwent surgery, right knee total replacement. She is doing well until this morning when she found to be encephalopathic and lethargic. It appears she might have taken some medication from home including the Soma compound. This is what is presumed. She was transferred to the ICU for observation and continued close monitoring. PAST MEDICAL HISTORY: Pertinent for apparently arthritis, coronary artery disease, diabetes, hypertension, lipidemia, apparently history of lupus. PAST SURGICAL HISTORY: Bilateral ankle surgery, left hip, tonsils, appendix, recent right total knee. SOCIAL HISTORY: The patient has history of apparently alcohol abuse in the past, though she has not apparently drank for many years. Also, has history of tobacco abuse. REVIEW OF SYSTEMS: We are not able to get any additional review of systems from the patient. HOME MEDICATIONS: Includes a long list: 1. Seroquel 200. 2. Methocarbamol 100. 3. Lasix 20. 4. Tylenol and Codeine. 5. Zocor 40. 6. . 7. Soma 350. 8. Valium 5. 9. Ismo 30. 10. Synthroid 25. 11. Glucophage 500. 12. Haldol a milligram. 13. Prozac 30. 14. Hydroxyzine 50. 15. Trazodone 200. ALLERGIES: 1. TORADOL. 2. PENICILLIN. 3. COMPAZINE. PHYSICAL EXAMINATION: GENERAL: She is arousable and does moves all 4 extremities. VITAL SIGNS: Temperature 98, pulse 82, respirations 14, saturations . CHEST: No wheezing, crackles. CARDIAC: Normal S1, S2. No gallops. ABDOMEN: No masses. LABORATORY DATA: Blood gases, adequate oxygenation. Lytes are normal. IMPRESSION: 1. Metabolic encephalopathy, possibly related to medication. 2. Recent right total knee. 3. History of bipolar disorder, diabetes, coronary artery disease. Avoid any pain medicine/sedation until she is more awake and responsive. Continue hydration. Otherwise, we will follow while in the ICU. This is one-half hour of critical care time. Job ID: [id number]
[2019-05-21] MEDS: Aspirin 81 mg Enteric Coated Tablet PO SCH ×2 (14:01→20:19)
[2019-05-21] MEDS: metFORMIN 500 MG TAB PO SCH (17:06)
[2019-05-21] MEDS: Atorvastatin Calcium 20 MG TAB PO SCH (20:19)
[2019-05-21] MEDS: traZODone HCl 50 MG TAB PO SCH (20:20)
--- NOTE | 2019-05-21 22:07 | PDOC.HOSPP ---
- Subjective Encounter Date: 05/21/19 Encounter Time: 09:00 Subjective: Patient seen and examined for med mngt. Code green called due to AMS/increased somnolence. No overnight events - Objective Vital Signs & Weight: Vital Signs (12 hours) Temp Pulse Ox 05/21/19 16:01 98.0 F 05/21/19 15:05 100 Weight Admit Weight 174 lb Weight 174 lb Most Recent Monitor Data Heart Rate from ECG 103 NIBP 140/95 NIBP BP-Mean 110 Respiration from ECG 20 SpO2 99 I&O: 05/20/19 05/21/19 05/22/19 06:59 06:59 06:59 Intake Total 2920 3103 Output Total 1125 0 Balance 1795 3103 Result Diagrams: 05/21/19 04:52 05/21/19 08:28 Additional Labs: Accuchecks 05/21/19 05/21/19 05/21/19 20:32 12:01 07:55 POC Glucose 144 H 149 H 162 H 05/21/19 05:33 POC Glucose 164 H EKG Reviewed by me: Yes (SR) Hospitalist ROS - Review of Systems ROS unobtainable: due to mental status - Medication Medications: Active Medications Generic Name Dose Route Start Last Admin Trade Name Freq PRN Reason Stop Dose Admin Acetaminophen 650 mg 05/20/19 09:45 05/21/19 20:20 Tylenol PO 650 mg Q4H PRN Administration Headache/Fever or Pain Hydrocodone Bitart/Acetaminophen 1 tab 05/20/19 08:53 05/20/19 17:07 [place] 10/325 PO 1 tab Q4H PRN Administration Pain (1-3) Hydrocodone Bitart/Acetaminophen 2 tab 05/20/19 08:53 05/21/19 07:13 [place] 10/325 PO 2 tab Q4H PRN Administration PAIN (4-6) Aspirin 81 mg 05/20/19 21:00 05/21/19 20:19 Ecotrin PO 81 mg BID CANELO Administration Atorvastatin Calcium 20 mg 05/20/19 21:00 05/21/19 20:19 Lipitor PO 20 mg HS CANELO Administration Celecoxib 200 mg 05/21/19 09:00 05/21/19 09:14 Celebrex PO Not Given DAILY CANELO Cyclobenzaprine HCl 10 mg 05/20/19 15:00 05/21/19 20:20 Flexeril PO 10 mg TID CANELO Administration Ferrous Gluconate 324 mg 05/20/19 21:00 05/21/19 20:19 Fergon PO 324 mg BID CANELO Administration Ropivacaine 250 ml/ Device 250 mls @ 0 mls/hr 05/20/19 08:53 05/21/19 14:00 NERVE BLCK 05/22/19 08:54 250 mls INF CANELO Administration As Directed Sodium Chloride 1,000 mls @ 100 mls/hr 05/21/19 09:29 05/21/19 17:30 Normal Saline 0.9% IV 1,000 mls .Q10H CANELO Administration Iron/Minerals/Multivitamins 1 tab 05/21/19 09:00 05/21/19 09:15 Theragran M PO Not Given DAILY CANELO Isosorbide Dinitrate 30 mg 05/21/19 09:00 05/21/19 09:15 Isordil PO Not Given DAILY CANELO Lamotrigine 100 mg 05/21/19 09:00 05/21/19 09:15 Lamictal PO Not Given DAILY CANELO Levothyroxine Sodium 25 mcg 05/21/19 06:00 05/21/19 06:12 Synthroid PO 25 mcg 0600 CANELO Administration Metformin HCl 500 mg 05/20/19 17:00 05/21/19 17:06 Glucophage PO 500 mg QPM-WM CANELO Administration Senna/Docusate Sodium 2 tab 05/20/19 21:00 05/21/19 20:19 Senokot S PO Not Given BID CANELO Tramadol HCl 100 mg 05/20/19 08:53 05/21/19 04:43 Ultram PO 100 mg Q6H PRN Administration Moderate Pain 4-6 Trazodone HCl 200 mg 05/20/19 21:00 05/21/19 20:20 Desyrel PO 200 mg HS CANELO Administration - Exam General Appearance: NAD (drowsy) Heart: RRR, no gallops, no rubs Respiratory: CTAB, no wheezes, no rales, no ronchi Gastrointestinal: soft, non-tender, non-distended, normal bowel sounds Extremities: no edema Neurological - other findings: Cannot assess due to current mentation Psychiatric: somnolent Hosp A/P - Plan DVT proph w/SCDs Toxic Metabolic Encephalopathy - med induced. Home meds at bedside including Valium and Soma DM2 Hyponatremia CAD HTN HLD Anxiety h/o Alcohol abuse in the past CKD 2 PLAN: s/p Narcan Transfer to [facility] for close monitoring AM labs Hold Psychotropic meds
[2019-05-22] MEDS: HYDROcodone/Acetaminophen 10/325 mg Tablet PO PRN ×3 (03:12→18:15)
[2019-05-22] MEDS: Sodium Chloride 0.9% 1,000 ML IV SCH ×2 (03:13→17:29)
[2019-05-22] MEDS ORDERED: Furosemide 40 MG/4 ML VIAL ONE ×2 (04:36→04:44)
[2019-05-22] MEDS ORDERED: Furosemide 40 MG/4 ML VIAL SLOW IVP SCH (04:40)
[2019-05-22 05:16] LABS: Bacteria/HPF None Seen HPF (None Seen); Bilirubin Negative (Negative); Blood, Urine Negative (Negative); Calcium Oxalate Crystals 3+ HPF (None Seen); Clarity Turbid (Clear); Glucose, Urine (Dipstick) Normal (Negative); Leukocyte Negative Leu/uL (Negative); Mucous/LPF Rare LPF (<2+); Nitrite Negative (Negative); Protein, Urine (Dipstick) Negative (Neg-Trace); Squamous Epithelial 0-3 HPF (0-3); Urobilinogen Normal mg/dL (Less than 2)
[2019-05-22 05:17] LABS: RBC/HPF 0-3 HPF (0-3)
[2019-05-22 05:24] LABS: Hemoglobin 11.2 g/dL (12.0-16.0); Mean Corpuscular HGB CONC 32.2 g/dL (32.0-36.0); Mean Corpuscular Volume 87.1 fL (78.0-98.0); Mean Platelet Volume 6.3 fL (7.4-10.4); Platelet Count 336 thou/uL (130-400); White Blood Cell (WBC) Count 15.6 thou/uL (4.8-10.8)
[2019-05-22 05:43] LABS: Anion Gap 14 mmol/L (10-20); BUN (Urea Nitrogen) 7 mg/dL (9.8-20.1); Calc. Creatinine Clearance 99 mL/min (70-130); Calcium 9.6 mg/dL (7.8-10.44); Carbon Dioxide 23 mmol/L (22-29); Chloride 104 mmol/L (98-107); Estimated GFR-MDRD 76; Glucose 132 mg/dL (70-105); Potassium 3.8 mmol/L (3.5-5.1); Sodium 137 mmol/L (136-145)
[2019-05-22] MEDS: Levothyroxine Sodium 25 MCG TAB PO SCH (05:44)
--- NOTE | 2019-05-22 08:09 | RAD ---
XR Chest 1 View History: Shortness of breath Comparison: Radiograph November 2017 Findings: Mild for edema. Heart size is enlarged. Small effusions. No pneumothorax. Impression: Mild pulmonary edema.
[2019-05-22] MEDS: Multivitamin W/ Minerals 1 TAB PO SCH (09:30)
[2019-05-22] MEDS: CeleCOXIB 100 MG CAP PO SCH (09:30)
[2019-05-22] MEDS: Ferrous Gluconate 324 MG TAB PO SCH ×2 (09:30→20:10)
[2019-05-22] MEDS: Senokot S 8.6-50 MG TAB PO SCH ×2 (09:31→20:09)
[2019-05-22] MEDS: Cyclobenzaprine 10 MG TAB PO SCH ×3 (09:31→20:09)
[2019-05-22] MEDS: Aspirin 81 mg Enteric Coated Tablet PO SCH ×2 (09:31→20:10)
[2019-05-22] MEDS: Isosorbide Dinitrate 20 MG TAB PO SCH (09:31)
[2019-05-22] MEDS: lamoTRIgine 100 MG TAB PO SCH (09:32)
--- NOTE | 2019-05-22 09:59 | PRG ---
DATE OF SERVICE: 05/22/2019 SUBJECTIVE: This morning, she is better, less encephalopathic. Pain is improved and less short of breath. OBJECTIVE: VITAL SIGNS: Temperature 97, saturations are 95% on 2 L, blood pressure 106/90, and respiratory rate 18. CHEST: No wheezing or crackles. CARDIAC: Normal S1 and S2. No gallop. ABDOMEN: No mass. IMPRESSION: 1. Chronic obstructive pulmonary disease, tobacco abuse. 2. Encephalopathy. 3. Chronic pain. 4. Total knee surgery. PLAN: Continue PT, supportive care. She is told to refrain from smoking. . Job ID: [id number]
--- NOTE | 2019-05-22 13:14 | PRG ---
DATE OF SERVICE: 05/22/2019 SUBJECTIVE: Sigrid is a 59-year-old female, postoperative day 2 from a right total knee arthroplasty. She has been in the intensive care unit since she was unresponsive yesterday morning and brie hickey was called. The patient was transferred. Dr. Hebert was also consulted for some shortness of breath. She has since stabilized and also improved significantly. In fact, Therapy just finished walking with her. She is ambulating with a standby assist for about 25 feet. OBJECTIVE: VITAL SIGNS: Heart rate is 92, blood pressure is 127/81, respiratory rate is 19 and nonlabored, O2 saturation is 95% on room air. GENERAL: She is alert and oriented, responsive and appropriate with examiner. Grossly nonfocal. EXTREMITIES: Her incision is clean. No erythema. No strikethrough. No breaks in the skin. No drainage. She is neurovascularly intact. No malrotation. There is no varus/valgus deformity. IMPRESSION: 1. A 59-year-old female, postoperative day 2 from a right total knee arthroplasty. 2. Mental status changes, improved. 3. Chronic obstructive pulmonary disease, stable, mildly improved. PLAN: We will continue current care. Continue physical therapy. Discuss the option of rehabilitation stay. We will discuss with Case Management to plan on disposition. Job ID: [id number]
[2019-05-22] MEDS: traMADol HCl 50 MG TAB PO PRN (14:04)
[2019-05-22] MEDS: metFORMIN 500 MG TAB PO SCH (18:09)
[2019-05-22] MEDS: traZODone HCl 50 MG TAB PO SCH (20:09)
[2019-05-22] MEDS: Atorvastatin Calcium 20 MG TAB PO SCH (20:10)
--- NOTE | 2019-05-22 21:58 | PDOC.HOSPP ---
- Subjective Encounter Date: 05/22/19 Encounter Time: 11:30 Subjective: Patient seen and examined for Encephalopathy. Mentation improving. No new focal deficits. No new complaints. No overnight events - Objective Vital Signs & Weight: Vital Signs (12 hours) Temp Pulse Pulse BP BP Pulse Ox Pulse Ox 05/22/19 19:28 97.2 F L 05/22/19 15:51 98.0 F 05/22/19 15:22 107 H 98 135/59 L 130/83 98 96 05/22/19 11:46 92 88 126/83 127/81 97 98 05/22/19 11:34 97.9 F Weight Admit Weight 174 lb Weight 174 lb Most Recent Monitor Data Heart Rate from ECG 83 NIBP 140/88 NIBP BP-Mean 105 Respiration from ECG 19 SpO2 99 I&O: 05/21/19 05/22/19 05/23/19 06:59 06:59 06:59 Intake Total 2920 5255 1000 Output Total 1125 3525 1650 Balance 1795 1730 -650 Result Diagrams: 05/22/19 05:01 05/22/19 05:01 Additional Labs: Accuchecks 05/22/19 05/22/19 05/22/19 16:43 12:15 08:20 POC Glucose 113 H 132 H 130 H 05/22/19 05/22/19 03:21 00:26 POC Glucose 99 112 H EKG Reviewed by me: Yes (Tele SR) Hospitalist ROS - Review of Systems Cardiovascular: denies: chest pain, palpitations, orthopnea, paroxysmal noc. dyspnea, edema, light headedness, other Gastrointestinal: denies: nausea, vomiting, abdominal pain, diarrhea, constipation, melena, hematochezia, other - Medication Medications: Active Medications Generic Name Dose Route Start Last Admin Trade Name Freq PRN Reason Stop Dose Admin Acetaminophen 650 mg 05/20/19 09:45 05/21/19 20:20 Tylenol PO 650 mg Q4H PRN Administration Headache/Fever or Pain Hydrocodone Bitart/Acetaminophen 1 tab 05/20/19 08:53 05/22/19 03:12 [place] 10/325 PO 1 tab Q4H PRN Administration Pain (1-3) Hydrocodone Bitart/Acetaminophen 2 tab 05/20/19 08:53 05/22/19 18:15 [place] 10/325 PO 2 tab Q4H PRN Administration PAIN (4-6) Aspirin 81 mg 05/20/19 21:00 05/22/19 20:10 Ecotrin PO 81 mg BID CANELO Administration Atorvastatin Calcium 20 mg 05/20/19 21:00 05/22/19 20:10 Lipitor PO 20 mg HS CANELO Administration Celecoxib 200 mg 05/21/19 09:00 05/22/19 09:30 Celebrex PO 200 mg DAILY CANELO Administration Cyclobenzaprine HCl 10 mg 05/20/19 15:00 05/22/19 20:09 Flexeril PO 10 mg TID CANELO Administration Diazepam 5 mg 05/20/19 09:49 05/22/19 03:47 Valium PO 5 mg BIDPRN PRN Administration Anxiety Ferrous Gluconate 324 mg 05/20/19 21:00 05/22/19 20:10 Fergon PO 324 mg BID CANELO Administration Sodium Chloride 1,000 mls @ 100 mls/hr 05/21/19 09:29 05/22/19 17:29 Normal Saline 0.9% IV Not Given .Q10H CANELO Iron/Minerals/Multivitamins 1 tab 05/21/19 09:00 05/22/19 09:30 Theragran M PO 1 tab DAILY CANELO Administration Isosorbide Dinitrate 30 mg 05/21/19 09:00 05/22/19 09:31 Isordil PO 30 mg DAILY CANELO Administration Lamotrigine 100 mg 05/21/19 09:00 05/22/19 09:32 Lamictal PO 100 mg DAILY CANELO Administration Levothyroxine Sodium 25 mcg 05/21/19 06:00 05/22/19 05:44 Synthroid PO 25 mcg 0600 CANELO Administration Metformin HCl 500 mg 05/20/19 17:00 05/22/19 18:09 Glucophage PO 500 mg QPM-WM CANELO Administration Senna/Docusate Sodium 2 tab 05/20/19 21:00 05/22/19 20:09 Senokot S PO 2 tab BID CANELO Administration Tramadol HCl 100 mg 05/20/19 08:53 05/22/19 14:04 Ultram PO 100 mg Q6H PRN Administration Moderate Pain 4-6 Trazodone HCl 200 mg 05/20/19 21:00 05/22/19 20:09 Desyrel PO 200 mg HS CANELO Administration - Exam General Appearance: NAD Neck: supple, no JVD Heart: RRR, no gallops Respiratory: CTAB, no rales, rhonchi Gastrointestinal: soft, non-distended Extremities: no cyanosis Hosp A/P - Plan DVT proph w/SCDs Toxic Metabolic Encephalopathy - improving DM2 Hyponatremia Leucocytosis - unlikely to be infectious CAD HTN HLD Anxiety h/o Alcohol abuse in the past CKD 2 PLAN: DC IVF Add Urine culture Cont Imdur/ASA/Statins Cont mild sliding scale/Metformin Cont to monitor PT/OT
[2019-05-23 04:18] LABS: Mean Corpuscular HGB CONC 32.9 g/dL (32.0-36.0); Mean Corpuscular Hemoglobin 28.7 pg (27.0-31.0); Mean Corpuscular Volume 87.3 fL (78.0-98.0); Mean Platelet Volume 6.3 fL (7.4-10.4); Platelet Count 256 thou/uL (130-400); Red Blood Cell (RBC) Count 3.47 mill/uL (4.20-5.40); White Blood Cell (WBC) Count 8.8 thou/uL (4.8-10.8)
[2019-05-23] MEDS: Levothyroxine Sodium 25 MCG TAB PO SCH (05:26)
[2019-05-23] MEDS: traMADol HCl 50 MG TAB PO PRN (07:39)
[2019-05-23] MEDS: Aspirin 81 mg Enteric Coated Tablet PO SCH ×2 (09:49→20:44)
[2019-05-23] MEDS: Senokot S 8.6-50 MG TAB PO SCH ×2 (09:49→20:46)
[2019-05-23] MEDS: CeleCOXIB 100 MG CAP PO SCH (09:49)
[2019-05-23] MEDS: Multivitamin W/ Minerals 1 TAB PO SCH (09:49)
[2019-05-23] MEDS: Ferrous Gluconate 324 MG TAB PO SCH ×2 (09:50→20:44)
[2019-05-23] MEDS: Isosorbide Dinitrate 20 MG TAB PO SCH (09:50)
[2019-05-23] MEDS: lamoTRIgine 100 MG TAB PO SCH (09:50)
[2019-05-23] MEDS: Cyclobenzaprine 10 MG TAB PO SCH ×3 (09:50→20:46)
[2019-05-23] MEDS: HYDROcodone/Acetaminophen 10/325 mg Tablet PO PRN ×2 (09:51→17:58)
[2019-05-23 12:05] VITALS: BMI 32.8
--- NOTE | 2019-05-23 13:01 | PRG ---
DATE OF SERVICE: 05/23/2019 SUBJECTIVE: Sigrid is a 59-year-old female, who is postop day #3 from a right total knee arthroplasty. She has spent the last 48 hours in Intensive Care Unit due to mental status changes, however the last 24 hours have been significantly improved for her and she has been up ambulating between 20 and 30 feet. She is also going back and forth to the bathroom with nursing staff. OBJECTIVE: VITAL SIGNS: Heart rate is 82, blood pressure is 121/85, and respiratory rate is 17. GENERAL: She is alert and oriented to person, place, time, situation, responsive, and appropriate with examiner. Grossly nonfocal. EXTREMITIES: Incision is clean and re-wrapped. No strike through. She is neurovascularly intact. No malrotation or shortening of the extremities. Good digital excursion is observed. LABORATORY DATA: Hemoglobin and hematocrit of 10.0 and 30.3. IMPRESSION: 1. A 59-year-old female postop day #3, right total knee arthroplasty, improved. 2. Mental status has improved. 3. Diabetes, tighter control. PLAN: She will transfer to [place] [id number]. Continue to observe the patient, but this may take 3 to 4 days before she is ready for discharge to home. Job ID: [id number]
[2019-05-23] MEDS: metFORMIN 500 MG TAB PO SCH (17:35)
[2019-05-23] MEDS: Atorvastatin Calcium 20 MG TAB PO SCH (20:44)
[2019-05-23] MEDS: traZODone HCl 50 MG TAB PO SCH (20:45)
[2019-05-24] MEDS: HYDROcodone/Acetaminophen 10/325 mg Tablet PO PRN ×4 (04:16→19:34)
[2019-05-24] MEDS: Levothyroxine Sodium 25 MCG TAB PO SCH (04:16)
[2019-05-24 05:24] LABS: Hemoglobin 10.5 g/dL (12.0-16.0); Mean Corpuscular HGB CONC 33.4 g/dL (32.0-36.0); Mean Corpuscular Hemoglobin 29.7 pg (27.0-31.0); Mean Platelet Volume 6.1 fL (7.4-10.4); Platelet Count 271 thou/uL (130-400); RBC Distribution Width 13.8 % (11.5-14.5); Red Blood Cell (RBC) Count 3.53 mill/uL (4.20-5.40); White Blood Cell (WBC) Count 7.7 thou/uL (4.8-10.8)
[2019-05-24 05:57] LABS: Anion Gap 14 mmol/L (10-20); BUN (Urea Nitrogen) 12 mg/dL (9.8-20.1); Calc. Creatinine Clearance 123 mL/min (70-130); Calcium 9.1 mg/dL (7.8-10.44); Carbon Dioxide 27 mmol/L (22-29); Chloride 104 mmol/L (98-107); Estimated GFR-MDRD 88; Glucose 90 mg/dL (70-105); Potassium 3.6 mmol/L (3.5-5.1); Sodium 141 mmol/L (136-145)
--- NOTE | 2019-05-24 08:09 | PDOC.HOSPP ---
- Subjective Encounter Date: 05/23/19 Encounter Time: 12:00 Subjective: Patient seen and examined for med mngt. No CP or SOB. Mentation better. No new complaints. No overnight events - Objective Vital Signs & Weight: Vital Signs (12 hours) Temp Pulse Resp BP Pulse Ox 05/24/19 07:47 98.3 F 79 16 136/83 96 05/24/19 04:23 97.8 F 72 18 121/83 100 05/23/19 23:53 98.4 F 71 16 125/84 94 L 05/23/19 20:41 98.4 F 76 16 120/81 98 Weight Admit Weight 174 lb Weight 191 lb 5 oz Most Recent Monitor Data Heart Rate from ECG 84 NIBP 118/66 NIBP BP-Mean 83 Respiration from ECG 17 SpO2 93 I&O: 05/23/19 05/24/19 05/25/19 06:59 06:59 06:59 Intake Total 1180 740 Output Total 2350 950 Balance -1170 -210 Result Diagrams: 05/24/19 04:52 05/24/19 04:52 Additional Labs: Accuchecks 05/24/19 05/24/19 05/23/19 04:21 00:05 21:25 POC Glucose 98 100 113 H 05/23/19 05/23/19 05/23/19 16:30 12:03 08:11 POC Glucose 114 H 158 H 115 H EKG Reviewed by me: Yes (Tele SR) Hospitalist ROS - Review of Systems Cardiovascular: denies: chest pain, palpitations, orthopnea, paroxysmal noc. dyspnea, edema, light headedness, other Gastrointestinal: denies: nausea, vomiting, abdominal pain, diarrhea, constipation, melena, hematochezia, other - Medication Medications: Active Medications Generic Name Dose Route Start Last Admin Trade Name Freq PRN Reason Stop Dose Admin Acetaminophen 650 mg 05/20/19 09:45 05/21/19 20:20 Tylenol PO 650 mg Q4H PRN Administration Headache/Fever or Pain Hydrocodone Bitart/Acetaminophen 1 tab 05/20/19 08:53 05/22/19 03:12 Delight 10/325 PO 1 tab Q4H PRN Administration Pain (1-3) Hydrocodone Bitart/Acetaminophen 2 tab 05/20/19 08:53 05/24/19 04:16 Delight 10/325 PO 2 tab Q4H PRN Administration PAIN (4-6) Aspirin 81 mg 05/20/19 21:00 05/23/19 20:44 Ecotrin PO 81 mg BID CANELO Administration Atorvastatin Calcium 20 mg 05/20/19 21:00 05/23/19 20:44 Lipitor PO 20 mg HS CANELO Administration Celecoxib 200 mg 05/21/19 09:00 05/23/19 09:49 Celebrex PO 200 mg DAILY CANELO Administration Cyclobenzaprine HCl 10 mg 05/20/19 15:00 05/23/19 20:46 Flexeril PO 10 mg TID CANELO Administration Diazepam 5 mg 05/20/19 09:49 05/22/19 03:47 Valium PO 5 mg BIDPRN PRN Administration Anxiety Ferrous Gluconate 324 mg 05/20/19 21:00 05/23/19 20:44 Fergon PO 324 mg BID CANELO Administration Iron/Minerals/Multivitamins 1 tab 05/21/19 09:00 05/23/19 09:49 Theragran M PO 1 tab DAILY CANELO Administration Isosorbide Dinitrate 30 mg 05/21/19 09:00 05/23/19 09:50 Isordil PO 30 mg DAILY CANELO Administration Lamotrigine 100 mg 05/21/19 09:00 05/23/19 09:50 Lamictal PO 100 mg DAILY CANELO Administration Levothyroxine Sodium 25 mcg 05/21/19 06:00 05/24/19 04:16 Synthroid PO 25 mcg 0600 CANELO Administration Metformin HCl 500 mg 05/20/19 17:00 05/23/19 17:35 Glucophage PO 500 mg QPM-WM CANELO Administration Senna/Docusate Sodium 2 tab 05/20/19 21:00 05/23/19 20:46 Senokot S PO 2 tab BID CANELO Administration Tramadol HCl 100 mg 05/20/19 08:53 05/23/19 07:39 Ultram PO 100 mg Q6H PRN Administration Moderate Pain 4-6 Trazodone HCl 200 mg 05/20/19 21:00 05/23/19 20:45 Desyrel PO 200 mg HS CANELO Administration - Exam General Appearance: NAD Heart: RRR, no gallops Respiratory: CTAB, no rales Gastrointestinal: soft, non-tender, normal bowel sounds Extremities: no edema Hosp A/P - Plan DVT proph w/SCDs Toxic Metabolic Encephalopathy - improving DM2 Hyponatremia Leucocytosis - unlikely to be infectious CAD HTN HLD Anxiety h/o Alcohol abuse in the past CKD 2 PLAN: Urine culture negative Cont Imdur/ASA/Statins/Metformin Haldol on hold Cont mild sliding scale Cont to monitor Transfer to surgical
[2019-05-24] MEDS: CeleCOXIB 100 MG CAP PO SCH (08:38)
[2019-05-24] MEDS: Aspirin 81 mg Enteric Coated Tablet PO SCH ×2 (08:38→19:33)
[2019-05-24] MEDS: lamoTRIgine 100 MG TAB PO SCH (08:39)
[2019-05-24] MEDS: Multivitamin W/ Minerals 1 TAB PO SCH (08:39)
[2019-05-24] MEDS: Isosorbide Dinitrate 20 MG TAB PO SCH (08:39)
[2019-05-24] MEDS: Senokot S 8.6-50 MG TAB PO SCH ×2 (08:39→19:33)
[2019-05-24] MEDS: Ferrous Gluconate 324 MG TAB PO SCH ×2 (08:39→19:32)
[2019-05-24] MEDS: Cyclobenzaprine 10 MG TAB PO SCH ×3 (08:39→19:36)
[2019-05-24] MEDS: metFORMIN 500 MG TAB PO SCH (17:24)
[2019-05-24] MEDS: traMADol HCl 50 MG TAB PO PRN (17:44)
[2019-05-24 19:31] VITALS: BP 107/72; TEMP 97.8
[2019-05-24] MEDS: traZODone HCl 50 MG TAB PO SCH (19:33)
[2019-05-24] MEDS: Atorvastatin Calcium 20 MG TAB PO SCH (19:33)
--- NOTE | 2019-05-24 20:48 | PDOC.HOSPP ---
- Subjective Encounter Date: 05/24/19 Encounter Time: 10:30 Subjective: Patient seen and examined for medical mngt. No CP or SOB. Pain controlled. No new complaints. No overnight events - Objective Vital Signs & Weight: Vital Signs (12 hours) Temp Pulse Resp BP BP Pulse Ox 05/24/19 19:31 97.8 F 70 18 107/72 95 05/24/19 16:17 98.0 F 73 16 104/69 100 05/24/19 12:06 98.0 F 65 16 111/73 97 Weight Admit Weight 174 lb Weight 191 lb 5 oz Most Recent Monitor Data Heart Rate from ECG 84 NIBP 118/66 NIBP BP-Mean 83 Respiration from ECG 17 SpO2 93 I&O: 05/23/19 05/24/19 05/25/19 06:59 06:59 06:59 Intake Total 7192 265 7607 Output Total 2350 950 750 Balance -1170 -210 450 Result Diagrams: 05/24/19 04:52 05/24/19 04:52 Additional Labs: Accuchecks 05/24/19 05/24/19 05/24/19 19:42 16:22 12:08 POC Glucose 116 H 156 H 105 05/24/19 05/24/19 05/23/19 04:21 00:05 21:25 POC Glucose 98 100 113 H 05/23/19 05/23/19 16:30 12:03 POC Glucose 114 H 158 H Hospitalist ROS - Review of Systems Respiratory: denies: cough, dry, shortness of breath, hemoptysis, SOB with excertion, pleuritic pain, sputum, wheezing, other Cardiovascular: denies: chest pain, palpitations, orthopnea, paroxysmal noc. dyspnea, edema, light headedness, other - Exam General Appearance: NAD Neck: supple, no JVD Heart: RRR, no gallops Respiratory: CTAB, no rales Gastrointestinal: soft, non-tender, normal bowel sounds Extremities: no edema Hosp A/P - Plan DVT proph w/SCDs Toxic Metabolic Encephalopathy - improving DM2 Hyponatremia Leucocytosis - unlikely to be infectious/Urine culture negative CAD HTN HLD Anxiety - on PRN Valium h/o Alcohol abuse in the past CKD 2 PLAN: Cont Imdur/ASA/Statins/Metformin Haldol/Seroquel on hold Cont mild sliding scale Cont other meds as above
== END 2019-05-24 20:38 | DRG 469 ==
LOC: SJJU 05-20 06:23 → CCU 05-21 08:46 → IMCU/EMU 05-21 12:53 → SJJU 05-23 18:44
PROVIDERS: ADMIT Orthopaedic Surgery; ATTEND Orthopaedic Surgery
PROC: 0SRC0J9 Replacement of Right Knee Joint with Synthetic Substitute, Cemented, Open Approach (ICD-10-PCS; principal; 2019-05-20)
PROC: 3E0U33Z Introduction of Anti-inflammatory into Joints, Percutaneous Approach (ICD-10-PCS; 2019-05-20)
DX: M17.0 Bilateral primary osteoarthritis of knee (principal); G92 Toxic encephalopathy; E87.1 Hypo-osmolality and hyponatremia; I13.0 Hypertensive heart and chronic kidney disease with heart failure and stage 1 through stage 4 chronic kidney disease, or unspecified chronic kidney disease; I50.9 Heart failure, unspecified; F25.0 Schizoaffective disorder, bipolar type; M32.9 Systemic lupus erythematosus, unspecified; F17.200 Nicotine dependence, unspecified, uncomplicated; E78.5 Hyperlipidemia, unspecified; I25.10 Atherosclerotic heart disease of native coronary artery without angina pectoris; E03.9 Hypothyroidism, unspecified; T50.905A Adverse effect of unspecified drugs, medicaments and biological substances, initial encounter; F41.9 Anxiety disorder, unspecified; E11.22 Type 2 diabetes mellitus with diabetic chronic kidney disease; N18.2 Chronic kidney disease, stage 2 (mild); J44.9 Chronic obstructive pulmonary disease, unspecified; G89.29 Other chronic pain; D72.829 Elevated white blood cell count, unspecified; Z79.82 Long term (current) use of aspirin; Z79.4 Long term (current) use of insulin; Z79.52 Long term (current) use of systemic steroids; Z79.899 Other long term (current) drug therapy; Z88.5 Allergy status to narcotic agent; Z88.0 Allergy status to penicillin; Z88.8 Allergy status to other drugs, medicaments and biological substances
CPT/HCPCS: 36415; 36416; 71045; 80048; 80053; 81001; 82140; 82607; 82746; 82805; 83735; 83880; 83930; 84443; 84484; 85027; 87086; C1713; C1776; J1030; J1815; J1940; J2001; J2250; J2310; J2704; J2795; J3010; J3370; J3490; S0020

== ENCOUNTER 2019-06-21 06:13 | Inpatient (IN) | payer OTHER ==
--- NOTE | 2019-06-21 08:41 | RAD ---
RIGHT FEMUR 2 VIEWS: HISTORY: Injury from a fall. FINDINGS: Marked soft tissue swelling anteriorly over the knee. Post total knee replacement. No evidence for periprosthetic fracture. The right femur otherwise appears intact. IMPRESSION: Status post total knee replacement. Marked soft tissue swelling over the prepatellar and suprapatell ar region, nonspecific. No acute fracture or dislocation. POS: TPC
--- NOTE | 2019-06-21 08:46 | RAD ---
AP PELVIS: HISTORY: Injury from a fall. COMPARISON: 09/16/2010. FINDINGS: There is some solid fecal material in the distal colon and rectum. No evidence for acute pelvic frac ture. Degenerative changes of both hip joints. There are some scattered opacities over the mid pelv is, possibly ingested and within the rectum. IMPRESSION: No evidence for acute fracture or dislocation. POS: TPC
--- NOTE | 2019-06-21 09:23 | RAD ---
RIGHT KNEE 4 VIEWS: Date: 06/21/19 HISTORY: Fall. Recent right knee replacement on 05/20/19. Right knee pain. FINDINGS/IMPRESSION: There are postop changes of total knee arthroplasty. A joint effusion is present. There is a bony fra gment noted anterior to the distal femur suspicious for a quadriceps tendon avulsion. Discussed over the telephone with ER physician, Dr. Eron Patterson, at 0815 hours. CODE CR. POS: SERENA
[2019-06-21] MEDS ORDERED: HYDROcodone/Acetaminophen 5/325 mg Tablet ONE (09:29)
[2019-06-21] MEDS ORDERED: PROPOFOL 200 MG/20 ML VIAL ONE (10:16)
[2019-06-21] MEDS ORDERED: Lidocaine 1% PF 5 ML VIAL ONE (10:16)
[2019-06-21] MEDS ORDERED: Bupivacaine HCl 0.5%/Epinephrine 1:200,000/PF 30 ml Vial ONE (10:16)
--- NOTE | 2019-06-21 11:23 | RAD ---
EXAM: Single view of the chest HISTORY: Preoperative radiograph with possible quadriceps avulsion COMPARISON: 11/27/2017 FINDINGS: Single view of the chest shows a normal sized cardiomediastinal silhouette. There is no sandra dence of consolidation, mass, or pleural effusion. The bones are unremarkable. IMPRESSION: No evidence of acute cardiopulmonary disease
[2019-06-21 12:02] LABS: #Eosinphils 0.2 thou/uL (0.0-0.7); #Lymphocytes 1.7 thou/uL (1.20-3.40); #Monocytes 0.6 thou/uL (0.11-0.59); #Neutrophils 7.3 thou/uL (1.40-6.50); %Basophils 0.2 % (0.0-1.0); %Lymphocytes 17.6 % (21.0-51.0); %Monocytes 5.9 % (0.0-10.0); %Neutrophils 74.3 % (42.0-75.0); Hemoglobin 13.1 g/dL (12.0-16.0); Mean Corpuscular HGB CONC 33.4 g/dL (32.0-36.0); Mean Corpuscular Hemoglobin 28.8 pg (27.0-31.0); Mean Corpuscular Volume 86.1 fL (78.0-98.0); Mean Platelet Volume 6.6 fL (7.4-10.4); Platelet Count 247 thou/uL (130-400); RBC Distribution Width 14.2 % (11.5-14.5); Red Blood Cell (RBC) Count 4.54 mill/uL (4.20-5.40); White Blood Cell (WBC) Count 9.8 thou/uL (4.8-10.8)
[2019-06-21 12:12] LABS: Prothrombin Time 13.1 SEC (12.0-14.7)
[2019-06-21 12:23] LABS: ALT (SGPT) 9 U/L (8-55); AST (SGOT) 23 U/L (5-34); Albumin 4.1 g/dL (3.5-5.0); Alkaline Phosphatase 190 U/L (40-110); Anion Gap 15 mmol/L (10-20); BUN (Urea Nitrogen) 16 mg/dL (9.8-20.1); Bilirubin, Total 0.4 mg/dL (0.2-1.2); Calc. Creatinine Clearance 0 mL/min (70-130); Calcium 9.7 mg/dL (7.8-10.44); Carbon Dioxide 26 mmol/L (22-29); Chloride 104 mmol/L (98-107); Estimated GFR-MDRD 48; Globulin 2.4 g/dL (2.4-3.5); Glucose 112 mg/dL (70-105); Potassium 3.5 mmol/L (3.5-5.1); Protein, Total 6.5 g/dL (6.0-8.3); Sodium 141 mmol/L (136-145)
[2019-06-21] MEDS ORDERED: Fentanyl 100 MCG/2 ML VIAL ONE (13:06)
[2019-06-21] MEDS ORDERED: Ondansetron HCl/PF 4 MG/2 ML Vial IVP PRN (14:51)
[2019-06-21] MEDS ORDERED: Ondansetron PF 4 MG/2 ML Vial IV PRN (15:09)
[2019-06-21] MEDS ORDERED: HYDROcodone/Acetaminophen 10/325 mg Tablet PO PRN (15:09)
[2019-06-21 18:32] VITALS: BMI 29.8
[2019-06-21] MEDS: HYDROcodone/Acetaminophen 10/325 mg Tablet PO PRN (19:00)
[2019-06-21] MEDS: Aspirin 81 mg Enteric Coated Tablet PO SCH (21:22)
[2019-06-21] MEDS: Clindamycin/D5W 600 MG in Premix Bag 1 BAG IVPB SCH (21:23)
[2019-06-21] MEDS: Morphine 2 MG/ML SYRINGE SLOW IVP PRN (21:30)
--- NOTE | 2019-06-21 21:41 | OP ---
DATE OF PROCEDURE: 06/21/2019 PREOPERATIVE DIAGNOSIS: Right knee complete quadriceps tendon tear, status post total knee replacement in the recent past. POSTOPERATIVE DIAGNOSIS: Right knee complete quadriceps tendon tear, status post total knee replacement in the recent past. PROCEDURE PERFORMED: Right open quad tendon repair. MORNING BABYSITTER: Harsha Govea PA-C ESTIMATED BLOOD LOSS: Minimal. COMPLICATIONS: None. ANESTHESIA: The patient did have a general anesthetic, also had a one-time femoral block. DISPOSITION: She did go to recovery room in stable condition. IMPLANTS: We used two titanium 5.5 mm triple-loaded rotator cuff anchors for the repair. INDICATIONS: This is a 59-year-old female, who is doing fine until she fell today, presented to the ER, unable to walk, unable to lift her leg straight and was found on the x-ray to have a patella baja and a huge effusion. At this time, it was felt she had ruptured her quad and was taken back to the operating room for repair. DESCRIPTION OF PROCEDURE: After all appropriate consent forms were explained and signed, she was taken to the operative room and at this time was given general anesthetic. Tourniquet was placed on the right thigh. Leg was prepped and draped in standard surgical fashion. Previous incision was opened and as soon as we got down through the subcutaneous tissue, a huge amount of blood was evacuated from the knee. We opened up enough of our tissue superficially to be able to get good access and visualization. We were able to clear the subcutaneous tissue off the quad tendon layer and at this time, clots were removed. At this time, we thoroughly irrigated with 2 L of saline. We used a suction ball syringe. Once this was done, we went ahead, did perform a repair. Secondary to the patella prosthesis, which was intact, we had to repair this with anchors. This patient had a small patella and two anchors was maximally felt that this could tolerate. We used a drill to get an entry hole and then placed our metal titanium triple-loaded 5.[address]. We then ran each of the six sets of sutures through the quadriceps tendon in mattress fashion, medial and lateral. We then tied these sequentially for our primary repair. We then used multiple interrupted #2 Vicryl's sutures to reapproximate our retinacular tear medial and lateral. We then oversewed our soft tissue anteriorly with the Vicryl as well. We then thoroughly irrigated and dried some more. We then used a 0 Stratafix followed by multiple interrupted Prolene sutures to close the skin. A bulky sterile dressing was applied as well as a knee immobilizer to the right leg. The patient was awakened and taken to recovery room in stable condition. All counts were correct at the end of the case and she did receive preoperative IV antibiotics. Job ID: [id number]
[2019-06-22] MEDS: HYDROcodone/Acetaminophen 10/325 mg Tablet PO PRN ×3 (00:03→09:55)
[2019-06-22] MEDS: Clindamycin/D5W 600 MG in Premix Bag 1 BAG IVPB SCH ×2 (03:28→08:56)
[2019-06-22] MEDS ORDERED: traMADol HCl 50 MG TAB PO PRN ×2 (08:50)
[2019-06-22] MEDS: Aspirin 81 mg Enteric Coated Tablet PO SCH (08:57)
[2019-06-22] MEDS ORDERED: FLU VACC QS2019-20(6MOS UP)/PF 60 MCG/0.5 ML SYRINGE IM ONE (09:00)
[2019-06-22] MEDS: Morphine 2 MG/ML SYRINGE SLOW IVP PRN (09:55)
[2019-06-22] MEDS ORDERED: Morphine 2 MG/ML SYRINGE SLOW IVP PRN (11:27)
[2019-06-22] MEDS ORDERED: Dextrose 50 % In Water 50 ML SYRINGE IV PRN (11:48)
[2019-06-22] MEDS ORDERED: Dextrose 5% in Water 1,000 ML IV PRN (11:48)
[2019-06-22] MEDS ORDERED: HumaLOG 300 UNITS/3 ML VIAL SC PRN (11:48)
[2019-06-22] MEDS ORDERED: HYDROmorphone 2 MG TAB PO SCH (12:00)
[2019-06-22] MEDS: Nicotine 14 MG PATCH TD SCH (13:49)
[2019-06-22] MEDS: Vancomycin HCl 1.25 GM in Sodium Chloride 0.9% 250 ML 250 ML IVPB SCH (13:49)
[2019-06-22] MEDS: FLUoxetine HCl 20 MG CAP PO SCH (13:50)
[2019-06-22] MEDS: Acetaminophen 500 MG TAB PO SCH ×2 (13:50→21:55)
[2019-06-22] MEDS: Haloperidol 1 MG TAB PO SCH (13:54)
[2019-06-22] MEDS: Gabapentin 300 MG CAP PO SCH ×2 (13:55→21:56)
[2019-06-22] MEDS ORDERED: Ketorolac Tromethamine 30 MG/ML VIAL IVP SCH (14:00)
[2019-06-22] MEDS: Furosemide 80 MG TAB PO SCH (14:00)
[2019-06-22] MEDS: Sodium Chloride 0.9% 1,000 ML IV SCH (14:00)
[2019-06-22] MEDS: Carvedilol 3.125 MG TAB PO SCH (14:00)
[2019-06-22] MEDS: fentaNYL Citrate/PF 2,000 MCG in Sodium Chloride 0.9% 60 ML IV PRN (14:18)
[2019-06-22] MEDS ORDERED: metFORMIN 500 MG TAB PO SCH (17:00)
[2019-06-22] MEDS ORDERED: Atorvastatin Calcium 20 MG TAB PO SCH (21:00)
[2019-06-22] MEDS: Senokot S 8.6-50 MG TAB PO SCH (21:55)
[2019-06-22] MEDS: rOPINIRole HCl 0.5 MG TAB PO SCH (22:03)
[2019-06-22] MEDS: Haloperidol 5 MG TAB PO SCH (22:30)
[2019-06-23] MEDS: Aspirin 81 mg Enteric Coated Tablet PO SCH ×3 (01:02→20:45)
[2019-06-23] MEDS: Acetaminophen 500 MG TAB PO SCH ×4 (02:24→20:46)
[2019-06-23] MEDS: Sodium Chloride 0.9% 1,000 ML IV SCH ×3 (02:25→20:47)
[2019-06-23] MEDS: Levothyroxine Sodium 25 MCG TAB PO SCH (05:38)
--- NOTE | 2019-06-23 06:45 | PDOC.FM ---
- Subjective Subjective: CONSULT NOTE: NAEO. Patient resting comfortably in bed. No complaints or concerns. Has not been up ambulating yet. - Objective MAR Reviewed: Yes Vital Signs & Weight: Vital Signs (12 hours) Temp Pulse Resp BP BP BP Pulse Ox 06/23/19 04:28 98.9 F 81 20 126/77 93 L 06/23/19 02:59 95 06/23/19 00:35 98.4 F 79 18 126/79 94 L 06/22/19 22:32 112/73 06/22/19 20:00 98.0 F 75 18 96/63 95 Weight Weight 78.925 kg I&O: 06/21/19 06/22/19 06/23/19 06:59 06:59 06:59 Intake Total 1040 3180 Output Total 500 950 Balance 540 2230 Result Diagrams: 06/21/19 11:39 06/23/19 06:58 Phys Exam - Physical Examination Constitutional: NAD HEENT: PERRLA, moist MMs, sclera anicteric Neck: supple, full ROM Respiratory: no wheezing, no rales, no rhonchi, clear to auscultation bilateral Cardiovascular: RRR, no significant murmur, no rub Gastrointestinal: soft, non-tender, no distention, positive bowel sounds Musculoskeletal: pulses present R L in paulino wrap and brace inplace; moving toes, sensation intact, pulses+ Neurological: non-focal, normal sensation, moves all 4 limbs Psychiatric: normal affect Skin: no rash, normal turgor, cap refill <2 seconds Dx/Plan (1) Status post total knee replacement, right Code(s): Z96.651 - PRESENCE OF RIGHT ARTIFICIAL KNEE JOINT Status: Acute (2) Bipolar disorder Code(s): F31.9 - BIPOLAR DISORDER, UNSPECIFIED Status: Chronic (3) CAD (coronary artery disease) Code(s): I25.10 - ATHSCL HEART DISEASE OF [place] CORONARY ARTERY W/O ANG PCTRS Status: Chronic (4) DM type 2 (diabetes mellitus, type 2) Status: Chronic (5) Dyslipidemia Code(s): E78.5 - HYPERLIPIDEMIA, UNSPECIFIED Status: Chronic (6) Hypothyroidism Code(s): E03.9 - HYPOTHYROIDISM, UNSPECIFIED Status: Chronic Qualifiers: (7) Tobacco abuse Code(s): Z72.0 - TOBACCO USE Status: Chronic - Plan Plan: CONSULTED for medical co-morbidities which include: #s/p Right Quadricep Repair - managed by primary team - on vanc - Rehab screen in place #DMII - A1c and FLP pending - Continue metformin, will increase dose - Continue home statin #TANISHA - CPAP ordered at night #RLS - Continue home meds #DJD - pain controlled currently #HLD - continue statin #Hypothyroidism - continue home med # Nicotine dependence - Nicotine patch PRN #HTn - BP at goal, continue to monitor #Psych issues: bipolar, anxiety - continue home meds, currently stable Code:FULL Dispo: pending primary team. Thank you for allowing us to participate in the care of this patient. Case discussed with Dr. Giron. Addendum - Attending - Attending Attestation Date/Time: 06/23/19 [id number] I personally evaluated the patient and discussed the management with Dr. Farmer I agree with the History, Examination, Assessment and Plan documented above with any addition or exceptions noted below. Will continue to follow along pain much improved with SOUND ASSISTANT.
[2019-06-23 07:14] LABS: Hemoglobin A1c 4.9 % (4.0-6.0)
[2019-06-23 07:25] LABS: Cardiac Risk 4.8 (Less than 4.5)
[2019-06-23 08:15] LABS: Anion Gap 13 mmol/L (10-20); BUN (Urea Nitrogen) 8 mg/dL (9.8-20.1); Calc. Creatinine Clearance 112 mL/min (70-130); Calcium 8.7 mg/dL (7.8-10.44); Carbon Dioxide 23 mmol/L (22-29); Chloride 110 mmol/L (98-107); Estimated GFR-MDRD 88; Glucose 104 mg/dL (70-105); Potassium 3.5 mmol/L (3.5-5.1); Sodium 142 mmol/L (136-145)
[2019-06-23] MEDS: Multivitamin W/ Minerals 1 TAB PO SCH (08:35)
[2019-06-23] MEDS: Furosemide 80 MG TAB PO SCH (08:35)
[2019-06-23] MEDS: Carvedilol 3.125 MG TAB PO SCH (08:35)
[2019-06-23] MEDS: FLUoxetine HCl 20 MG CAP PO SCH (08:35)
[2019-06-23] MEDS: Gabapentin 300 MG CAP PO SCH ×3 (08:35→20:45)
[2019-06-23] MEDS: Senokot S 8.6-50 MG TAB PO SCH ×2 (08:36→20:45)
[2019-06-23] MEDS: Haloperidol 1 MG TAB PO SCH (10:32)
[2019-06-23] MEDS: Nicotine 14 MG PATCH TD SCH (12:51)
[2019-06-23] MEDS: Vancomycin HCl 1.25 GM in Sodium Chloride 0.9% 250 ML 250 ML IVPB SCH (14:48)
[2019-06-23] MEDS ORDERED: metFORMIN 500 MG TAB PO SCH (17:00)
[2019-06-23] MEDS: rOPINIRole HCl 0.5 MG TAB PO SCH (20:46)
[2019-06-23] MEDS: Atorvastatin Calcium 20 MG TAB PO SCH (20:46)
[2019-06-23] MEDS: Haloperidol 5 MG TAB PO SCH (20:46)
[2019-06-23] MEDS: fentaNYL Citrate/PF 2,000 MCG in Sodium Chloride 0.9% 60 ML IV PRN (22:10)
[2019-06-24] MEDS: Acetaminophen 500 MG TAB PO SCH ×4 (01:25→20:52)
[2019-06-24] MEDS: Levothyroxine Sodium 25 MCG TAB PO SCH (05:59)
--- NOTE | 2019-06-24 06:49 | PDOC.FM ---
- Subjective Subjective: NAEO. Patient resting comfortably in bed. States her pain comes and goes but that its mostly controlled with her pain meds. She states she worked with PT yesterday. They had her stand on her legs for 10 min. She states this caused her pain. She is not yet walking on the leg. Tolerating PO. Having BMs. Lopez in place. - Objective MAR Reviewed: Yes Vital Signs & Weight: Vital Signs (12 hours) Temp Pulse Resp BP Pulse Ox 06/24/19 03:38 97.9 F 68 16 106/71 94 L 06/23/19 23:27 98.1 F 92 16 106/71 93 L 06/23/19 21:00 97.9 F 68 16 111/75 94 L Weight Weight 78.925 kg I&O: 06/22/19 06/23/19 06/24/19 06:59 06:59 06:59 Intake Total 1040 3180 3888 Output Total 736 953 9702 Balance 540 2230 1088 Result Diagrams: 06/21/19 11:39 06/23/19 06:58 Phys Exam - Physical Examination Constitutional: NAD HEENT: PERRLA, moist MMs, sclera anicteric Neck: supple, full ROM Respiratory: clear to auscultation bilateral Cardiovascular: RRR, no significant murmur, no rub Gastrointestinal: soft, non-tender JESSICA wrap and brace in place on RLE Neurological: non-focal, moves all 4 limbs Psychiatric: normal affect, A&O x 3 Skin: no rash, normal turgor, cap refill <2 seconds Dx/Plan (1) Status post total knee replacement, right Code(s): Z96.651 - PRESENCE OF RIGHT ARTIFICIAL KNEE JOINT Status: Acute (2) Bipolar disorder Code(s): F31.9 - BIPOLAR DISORDER, UNSPECIFIED Status: Chronic (3) CAD (coronary artery disease) Code(s): I25.10 - ATHSCL HEART DISEASE OF [place] CORONARY ARTERY W/O ANG PCTRS Status: Chronic (4) DM type 2 (diabetes mellitus, type 2) Status: Chronic (5) Dyslipidemia Code(s): E78.5 - HYPERLIPIDEMIA, UNSPECIFIED Status: Chronic (6) Hypothyroidism Code(s): E03.9 - HYPOTHYROIDISM, UNSPECIFIED Status: Chronic Qualifiers: (7) Tobacco abuse Code(s): Z72.0 - TOBACCO USE Status: Chronic - Plan Plan: CONSULTED for medical co-morbidities which include: #s/p Right Quadricep Repair, POD 3 - managed by primary team. s/p vanc x 3 doses. - Pain controlled with fentanyl pump - PT/OT - Rehab screen in place #TANISHA - CPAP ordered at night #RLS - Continue home meds #DJD - pain controlled currently. PT inplace. #HLD - Will increase to high intensity statin th (ASCVD 7.5%) - Risk stratify - A1c 4.9. Metformin discontinued. Sugars have been controlled. #Hypothyroidism - continue home med. TSH normal. # Nicotine dependence - Nicotine patch PRN #HTN - BP at goal, continue to monitor #Psych issues: bipolar, anxiety - continue home meds, currently stable Code:FULL Dispo: pending primary team. Thank you for allowing us to participate in the care of this patient. Case discussed with Dr. Adkins. Addendum - Attending - Attending Attestation Date/Time: 06/24/19 1024 I personally evaluated the patient and discussed the management with Dr. Farmer. I agree with the History, Examination, Assessment and Plan documented above with any addition or exceptions noted below. Patient here s/p ortho surgery. Dispo per their team. Working on blood glucose and HTN mgmt. She is overall doing well currently.
--- NOTE | 2019-06-24 07:35 | CON ---
DATE OF CONSULTATION: 06/22/2019 CHIEF COMPLAINT: Right knee complete quadriceps tendon tear, status post total knee replacement, consulted for medical management. HISTORY OF PRESENT ILLNESS: Ms. Dawson is a 59-year-old female, who presented after a fall and landed on a hard surface. She has a past medical history of a knee surgery on May 20 and found to have a complete quadriceps tear that was repaired by Dr. Castillo. She was seen at [facility] by Dr. Farmer and reports her diabetes is well controlled with metformin. Her psychiatric illness of bipolar is managed with multiple medications. Denies any nausea or vomiting. Reports drinking clear liquids with no problems thus far. She is due to get physical and occupational therapy today. Pain is well controlled with pain medication. She would like to go to rehab. She currently lives with her aunt and uncle, who are in their 80s and unable to help care for her at home. ALLERGIES: TRAMADOL, PENICILLIN, AND COMPAZINE. PAST MEDICAL HISTORY: 1. TANISHA. 2. Restless legs syndrome. 3. Degenerative disk disease. 4. Muscle spasms. 5. B12 deficiency. 6. Bipolar 1. 7. Anxiety. 8. Hypothyroidism. 9. Hyperlipidemia. 10. Hypertension. 11. Coronary artery disease. 12. Type 2 diabetes. 13. Osteoarthritis. 14. Nicotine. PAST SURGICAL HISTORY: Left hip, quadriceps tendon repair on 06/21/2019, bilateral ankle surgery, appendectomy, tonsillectomy, and heart catheterization. FAMILY HISTORY: Family history of heart disease in mother and father. SOCIAL HISTORY: Lives with aunt and uncle. Denies alcohol or drug use. Smokes a half pack a day for the past 40 years. MEDICATIONS: 1. Fluoxetine 40 mg q.a.m. 2. Seroquel 200 mg q.a.m. 3. Requip 0.5 mg at bedtime. 4. Isosorbide dinitrate 30 mg half tab daily. 5. Gabapentin 300 mg t.i.d. 6. Tylenol No. 3 b.i.d. p.r.n. 7. Simvastatin 40 mg at bedtime. 8. Promethazine 12.5 mg p.r.n. 9. Levothyroxine 25 mcg daily. 10. Haldol 2 mg q.a.m. and 5 mg at bedtime. 11. Coreg 3.125 mg daily. 12. Furosemide 80 mg daily. 13. Aspirin 81 mg daily. 14. Metformin 500 mg b.i.d. REVIEW OF SYSTEMS: GENERAL: Denies fever or chills. HEENT: Denies nasal congestion or rhinorrhea. RESPIRATORY: Denies cough or shortness of breath. CARDIOVASCULAR: Denies chest pain or edema. GI: Denies nausea or vomiting. SKIN: Denies rash. MUSCULOSKELETAL: Reports right leg pain and injury. NEUROLOGIC: Denies tingling or numbness. PHYSICAL EXAMINATION: VITAL SIGNS: Temperature 98.2, pulse 84, respirations 18, SpO2 97% on room air , and blood pressure 107/67. CONSTITUTIONAL: No acute distress. Awake, alert, and oriented x3. HEENT: Moist mucous membranes. NECK: Neck is supple. Trachea midline. CHEST: Regular rate and rhythm. Normal S1 and S2. No murmurs. LUNGS: Clear to auscultation bilaterally. No distress. ABDOMEN: Soft and nontender. MUSCULOSKELETAL: Right leg wrapped in a splint, elevated with pillows. NEUROLOGIC: Normal sensation. No focal deficit. SKIN: No rash. Good turgor. PSYCHIATRIC: Normal mood and affect. Good judgment and insight. LABORATORY RESULTS: White blood cell count 9.8, hemoglobin 13.1, and platelets 247. Creatinine 1.17, sodium 141, glucose 139, and alkaline phosphatase 190. IMAGING STUDIES: Radiology interpretation; Femur x-ray on 06/21/2019, status post total knee replacement and moderate soft tissue swelling over the prepatellar and suprapatellar region, nonspecific. No acute fracture or dislocation. Knee x-ray on 06/21/2019, postop changes of total knee arthroplasty. A joint effusion is present. There is a bony fragment noted anterior to the distal femur suspicious for quadriceps tendon avulsion. Pelvis x-ray on 06/21/2019, no evidence for acute fracture or dislocation. Chest x-ray on 06/21/2019, no evidence of acute cardiopulmonary disease. IMPRESSION AND PLAN: 1. Quadriceps tendon tear, status post right open quad tendon repair, per primary team surgery. She appears to be recovering well and pain is well controlled. It looks like her diet has already been escalated. Holding home Tylenol No. 3. The patient is currently being managed with [place]. The patient is being evaluated for inpatient rehab. 2. Type 2 diabetes. Continue home metformin and sliding scale insulin. Hypoglycemic protocol ordered. 3. Hypertension. Continue home isosorbide dinitrate and furosemide. 4. Coronary artery disease. Continue aspirin. 5. Restless legs syndrome. Continue Requip. 6. Bipolar 1 and anxiety. Continue fluoxetine, Seroquel, and Haldol. 7. Obstructive sleep apnea. The patient is currently being evaluated for CPAP machine, does not have one at home. Recommend continuing outpatient management for this. 8. Hypothyroidism. Continue home levothyroxine. 9. Nicotine abuse. We will offer Nicotine patch This patient was seen and evaluated by Dr. Giron, he is in agreement with the plan. Job ID: [id number] [id number]
[2019-06-24] MEDS: Sodium Chloride 0.9% 1,000 ML IV SCH ×2 (07:38→17:10)
[2019-06-24] MEDS: Furosemide 80 MG TAB PO SCH (07:49)
[2019-06-24] MEDS: FLUoxetine HCl 20 MG CAP PO SCH (07:49)
[2019-06-24] MEDS: Gabapentin 300 MG CAP PO SCH ×3 (07:49→20:52)
[2019-06-24] MEDS: Carvedilol 3.125 MG TAB PO SCH (07:49)
[2019-06-24] MEDS: Multivitamin W/ Minerals 1 TAB PO SCH (07:49)
[2019-06-24] MEDS: Aspirin 81 mg Enteric Coated Tablet PO SCH ×2 (07:49→20:51)
[2019-06-24] MEDS: Senokot S 8.6-50 MG TAB PO SCH ×2 (07:50→20:51)
[2019-06-24] MEDS: Haloperidol 1 MG TAB PO SCH (11:07)
[2019-06-24] MEDS: Nicotine 14 MG PATCH TD SCH (11:12)
[2019-06-24] MEDS: Vancomycin HCl 1.25 GM in Sodium Chloride 0.9% 250 ML 250 ML IVPB SCH (17:07)
[2019-06-24] MEDS: rOPINIRole HCl 0.5 MG TAB PO SCH (20:51)
[2019-06-24] MEDS: Atorvastatin Calcium 20 MG TAB PO SCH (20:51)
[2019-06-24] MEDS: Haloperidol 5 MG TAB PO SCH (20:51)
[2019-06-25] MEDS: Acetaminophen 500 MG TAB PO SCH ×2 (01:21→08:44)
[2019-06-25] MEDS: fentaNYL Citrate/PF 2,000 MCG in Sodium Chloride 0.9% 60 ML IV PRN (04:40)
[2019-06-25] MEDS: Levothyroxine Sodium 25 MCG TAB PO SCH (04:58)
[2019-06-25] MEDS: Sodium Chloride 0.9% 1,000 ML IV SCH (04:59)
--- NOTE | 2019-06-25 06:11 | PDOC.FM ---
- Subjective Subjective: NAEO. Patient resting comfortably in bed. States her leg is mildly sore. She still has the [employer] pump. States Dr. Castillo is going to ween her off the pump today and start oral pain meds. Tolerating PO. Starting to walk on leg - only took a few steps yesterday. - Objective MAR Reviewed: Yes Vital Signs & Weight: Vital Signs (12 hours) Temp Pulse Resp BP Pulse Ox 06/25/19 04:17 98.0 F 88 16 118/85 95 06/24/19 23:34 98.5 F 83 16 124/82 97 06/24/19 20:00 98.3 F 77 16 128/79 96 Weight Weight 78.925 kg I&O: 06/23/19 06/24/19 06/25/19 06:59 06:59 06:59 Intake Total 3180 3888 5170 Output Total 950 2800 6900 Balance 2230 1088 -1730 Result Diagrams: 06/25/19 06:15 06/23/19 06:58 Phys Exam - Physical Examination Constitutional: NAD HEENT: PERRLA, moist MMs, sclera anicteric Neck: supple, full ROM Respiratory: no wheezing, no rales, no rhonchi, clear to auscultation bilateral Cardiovascular: RRR, no significant murmur, no rub Gastrointestinal: soft, non-tender, no distention, positive bowel sounds Musculoskeletal: pulses present paulino wrap/brace on RLE, moves toes Neurological: non-focal, moves all 4 limbs Psychiatric: normal affect, A&O x 3 Skin: no rash, normal turgor, cap refill <2 seconds Dx/Plan (1) Status post total knee replacement, right Code(s): Z96.651 - PRESENCE OF RIGHT ARTIFICIAL KNEE JOINT Status: Acute (2) Bipolar disorder Code(s): F31.9 - BIPOLAR DISORDER, UNSPECIFIED Status: Chronic (3) CAD (coronary artery disease) Code(s): I25.10 - ATHSCL HEART DISEASE OF [place] CORONARY ARTERY W/O ANG PCTRS Status: Chronic (4) Dyslipidemia Code(s): E78.5 - HYPERLIPIDEMIA, UNSPECIFIED Status: Chronic (5) Hypothyroidism Code(s): E03.9 - HYPOTHYROIDISM, UNSPECIFIED Status: Chronic Qualifiers: (6) Tobacco abuse Code(s): Z72.0 - TOBACCO USE Status: Chronic - Plan Plan: CONSULTED for medical co-morbidities which include: #s/p Right Quadricep Repair, POD 4 - managed by primary team. s/p vanc x 3 doses. - Pain controlled with [employer] pump. To be discontinued today per patient. - PT/OT - Rehab screen placed. CM consulted for placement/discharge planning. #TANISHA - CPAP ordered at night #RLS - Continue home meds #DJD - pain controlled currently. PT in place. #HLD - Will increase to high intensity statin th (ASCVD 7.5%) - Risk stratify - A1c 4.9. Metformin discontinued. Sugars have been controlled. #Hypothyroidism - continue home med. TSH normal. # Nicotine dependence - Nicotine patch PRN #HTN - BP at goal, continue to monitor #Psych issues: bipolar, anxiety - continue home meds, currently stable Code:FULL Dispo: pending primary team. Thank you for allowing us to participate in the care of this patient. Case discussed with Dr. Adkins. Addendum - Attending - Attending Attestation Date/Time: 06/25/19999 I personally evaluated the patient and discussed the management with Dr. Farmer. I agree with the History, Examination, Assessment and Plan documented above with any addition or exceptions noted below. Patient doing well. BP and blood glucose controlled. Dispo per primary team.
[2019-06-25 06:38] LABS: #Eosinphils 0.4 thou/uL (0.0-0.7); #Lymphocytes 2.4 thou/uL (1.20-3.40); #Monocytes 0.6 thou/uL (0.11-0.59); #Neutrophils 3.7 thou/uL (1.40-6.50); %Basophils 0.6 % (0.0-1.0); %Eosinophils 5.1 % (0.0-10.0); %Lymphocytes 33.7 % (21.0-51.0); %Monocytes 8.7 % (0.0-10.0); Hemoglobin 10.6 g/dL (12.0-16.0); Mean Corpuscular Hemoglobin 28.4 pg (27.0-31.0); Mean Corpuscular Volume 88.8 fL (78.0-98.0); Platelet Count 212 thou/uL (130-400); RBC Distribution Width 13.7 % (11.5-14.5); Red Blood Cell (RBC) Count 3.73 mill/uL (4.20-5.40); White Blood Cell (WBC) Count 7.1 thou/uL (4.8-10.8)
[2019-06-25] MEDS: Senokot S 8.6-50 MG TAB PO SCH (08:43)
[2019-06-25] MEDS: Aspirin 81 mg Enteric Coated Tablet PO SCH (08:44)
[2019-06-25] MEDS: Haloperidol 1 MG TAB PO SCH (08:44)
[2019-06-25] MEDS: Carvedilol 3.125 MG TAB PO SCH (08:44)
[2019-06-25] MEDS: Gabapentin 300 MG CAP PO SCH ×2 (08:44→15:15)
[2019-06-25] MEDS: Furosemide 80 MG TAB PO SCH (08:44)
[2019-06-25] MEDS: Multivitamin W/ Minerals 1 TAB PO SCH (08:44)
[2019-06-25] MEDS: FLUoxetine HCl 20 MG CAP PO SCH (08:45)
[2019-06-25] MEDS ORDERED: HYDROcodone/Acetaminophen 5/325 mg Tablet PO PRN ×2 (10:55→10:56)
[2019-06-25] MEDS ORDERED: Acetaminophen 500 MG TAB PO PRN (11:18)
[2019-06-25] MEDS: Nicotine 14 MG PATCH TD SCH (11:59)
[2019-06-25] MEDS: Ketorolac Tromethamine 30 MG/ML VIAL IVP SCH (12:01)
[2019-06-25 16:00] VITALS: BP 101/66; TEMP 98.2
[2019-06-26] MEDS ORDERED: Isosorbide Dinitrate 5 MG TAB PO SCH (09:00)
== END 2019-06-25 19:55 | DRG 502 ==
LOC: ERS 06:13 → SDC/OP 13:17 → OBSVTOIN 16:19 → SURG B 16:19
PROVIDERS: ADMIT Orthopaedic Surgery; ATTEND Orthopaedic Surgery
PROC: 0LQQ0ZZ Repair Right Knee Tendon, Open Approach (ICD-10-PCS; principal; 2019-06-21)
DX: S76.111A Strain of right quadriceps muscle, fascia and tendon, initial encounter (principal); Z79.899 Other long term (current) drug therapy; Z96.651 Presence of right artificial knee joint; W18.30XA Fall on same level, unspecified, initial encounter; Z88.0 Allergy status to penicillin; Z88.8 Allergy status to other drugs, medicaments and biological substances; I10 Essential (primary) hypertension; E78.5 Hyperlipidemia, unspecified; I25.10 Atherosclerotic heart disease of native coronary artery without angina pectoris; Z90.89 Acquired absence of other organs; F17.210 Nicotine dependence, cigarettes, uncomplicated; G47.33 Obstructive sleep apnea (adult) (pediatric); G25.81 Restless legs syndrome; F41.9 Anxiety disorder, unspecified; E03.9 Hypothyroidism, unspecified; M19.91 Primary osteoarthritis, unspecified site; Z90.49 Acquired absence of other specified parts of digestive tract; E11.9 Type 2 diabetes mellitus without complications
CPT/HCPCS: 36415; 36416; 71045; 72170; 80048; 80053; 80061; 83036; 84443; 85025; 85610; 85730; 93005; 93010; C1713; G0390; J0670; J2001; J2270; J2704; J3010; J3370; J3490; J7050; L1830